=== PATIENT | male | born 1995 | race Caucasian/White ===

== ENCOUNTER 2025-02-02 21:35 | Inpatient (IN) | payer SELFPAY ==
--- NOTE | ~2025-02-02 | US_ITS ---
EXAMINATION: US KIDNEY BILATERAL HISTORY: History of nephrolithiasis TECHNIQUE: Real-time grayscale ultrasound imaging of the kidneys was performed and images were reviewed. COMPARISON: There are no prior studies available for comparison. FINDINGS: Right kidney: The right kidney measures 11.8 x 5.2 x 5.5 cm. Renal parenchymal echotexture and thickness are normal. There are no masses. There is mild hydronephrosis. There are no renal calculi. Left Kidney: The left kidney measures 12.2 x 5.5 x 4.7 cm. Renal parenchymal echotexture and thickness are normal. There are no masses. There is mild hydronephrosis. There are no renal calculi. US/US renal BI IMPRESSION: Mild bilateral hydronephrosis. No renal calculi are identified. If there is clinical concern for ureteral calculi, unenhanced CT is recommended. Electronically signed by: Bud Phan MD 02/04/2025 07:18 AM [facility]
--- OUTSIDE RECORDS SUMMARY | 2025-02-02 21:38 | XMS_ITS | Continuity of Care Document ---
Author Organization [place] - NURY Thomson.PAXTON Address [address] [facility] [address] [place] [address] Care Team Providers Care Curtain Fitter Name Role Phone SHELLI HERNANDEZ RN Oven Stripper NONE, NONE Primary Care Provider Unavailabl e SELF, SELF Referring Provider Unavailable Assessment No assessment recorded. Plan of Treatment Reminders Order Date Submit Date Provider Last Modified By Organization Details Last Modified Time Details Appointments [facility]- Pending 2024 11:40A M HILTON HITCHCOCK PA-C Not available Not available Not available Lab None recorded. Referral None recorded. Procedures None recorded. Surgeries None recorded. Imaging None recorded. Medication Orders tizanidin e 4 mg tablet 2024 025 [facility]/Pharmacy #[id number], [address] [place], [address], 12/15/2024 13:40:51 gabapenti n 300 mg capsule [address] [place] [address]/Pharmacy #[id number], [address] [place], [address], 12/15/2024 13:40:52 Patient TargetsNo targets recorded. 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 - Physical Exam: Vital signs: 5'6, 163 lbs, pain score 4-5/10 The patient is well-groomed, well-developed. Patient is in no distress who is alert, appropriate, and oriented 3. anxious Neck is supple and nontender. No abnormal lymph nodes are noted. Peripheral neurovascular exam reveals good pulses without edema or swelling. Midline spine is nontender and the sacroiliac joints are nontender bilaterally. Diffuse tenderness of lumbar paraspinal muscles, no midline tenderness. Inspection/palpatio n of all 4 extremities revealed no defects. Normal DTRs. Sensation was intact in all 4 extremities. Gait is steady. Coordination is normal in all 4 extremities. Range of motion is within normal limits in all 4 extremities. There is no gross instability noted in all 4 extremities. exam deferred due to telemedicine visit on 12/15/24 Imaging: Lumbar x-rays 07/2024: No significant degenerative changes and no acute findings (lifespan) Lumbar MRI 08/11/24: No significant foraminal or central canal stenosis (RIMI) I have reviewed the patient s most recent imaging and/or the radiologist s report. Discussion: Teodoro is a pleasant 29-year-old male with a benign past medical history. He is presenting for evaluation of back and left greater than right leg symptoms that started after a work-related injury on July 14, 2024. 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 He had immediate pain and has been seen in urgent care in [place] multiple times as well as [facility] emergency room. The pain radiates down the left leg to the foot and he also has intermittent numbness and tingling. He has had numbness and tingling go down the right leg to the foot once. He endorses spasms as well as general weakness. He describes it as a pinched stabbing pain. He also has had an episode of where he has tingling in the right arm when doing a push-up. Symptoms are especially aggravated with activity including standing, bending, walking, and lifting. Symptoms are worst at the end of the day. He has trouble even doing dishes. Prior to seeing our office he has tried conservative measures including home stretches, exercises, activity modification, ibuprofen, naproxen, oral prednisone, oxycodone, cyclobenzaprine, and methocarbamol. 08/20/24: Pt presents for follow-up. He has attended two PT appts. and continues with methocarbamol and motrin QD. He reports minimal improvement in his sx. Now has diffuse back pain that is aching and worse after PT. Pain does occasionally radiate into both buttocks, R >L. He does say he thinks PT is helping a little. Continues with motrin and robaxin with transient relief. Denies numbness, tingling, gait disturbance, bowel/bladder incontinence, saddle anesthesia. 09/29/24: Called patient for his telemedicine appt. He continues with his low back pain with bilateral LE radiculopathy, right worse than left. He has been taking gabapentin and was told to take 600-900 mg but admits that he has been taking 1,800 mg daily because this is helping. He gradually increased his dose on his own. He continues with PT which he says is also helping. He is interested in the epidural spinal injection and just approved this for patient. He continues with at home stretches, heat and Ice. He is interested in trying a different muscle relaxer as the cyclobenzaprine was not helpful. Patient denies fever, chills, weakness, falls, gait disturbance, numbness, bowel/bladder incontinence and saddle anesthesia. Telemedicine visit, audio only, patient is at home, time spent is 10 minutes. 10/22/24: Teodoro presents for a follow-up visit after his first epidural spinal injection. Fortunately, he reports a >90% benefit after the injection. He notices the biggest relief after he does activity he does not feel so stiff and sore. For example, after physical therapy, he usually will feel increased pain and soreness related to the activity but since the injection, this is not happened. He says that overall, since the beginning of his treatment he estimates a >50% improvement in his symptoms. He continues taking the Gabapentin how much is anodyne and even purchased a Tens unit. These have all been beneficial for patient. He would like to try another injection because the pain is still a 6/10. He offers no additional concerns. I have reviewed /requested the patient s previous medical records. - Assessment/Plan: This is an injection follow-up. Fortunately he reports having over 50% benefit. He is able to walk around and do light activity without much pain however if he lifts more than 35 pounds or 50 pounds he will retrigger the spasms. He is in physical therapy and has been going for about 2 weeks. I have encouraged him to continue this. He also is continuing with the tizanidine and gabapentin. We will see how he does over the next month. He is eligible for a third injection if necessary. We also discussed work status. I believe he is ready to return back to work if he has restrictions of lifting no more than 10 pounds starting on 12/22/24. He is in agreement with the plan. We will follow up again in 4 weeks for medication and physical therapy follow-up. He will follow up sooner if needed Telemedicine, audio only, total time spent 10 minutes, the patient was home Conservative Measures Attempted: Self-Directed Exercise program recommended? Yes -15 minutes stretching BID -walk, swim or bike 30 minutes as tolerated daily -follow along with [employer] PT videos Modified home/work environment for symptoms reduction? Yes Nsaids/Tylenol x14 days tried? Yes Rest, ice & heat tried? Yes Treatment: 07/30/24 rx'd medrol and methocarbamol, requesting lumbar MRI 08/20/24: rx'd gabapentin and reviewed MRI 09/05/24 increase gabapentin to 600-900mg/day, requesting injection, continue PT 09/29/24: scheduled MARKOS and rx'd tizanidine 10/01/2024- RIGHT EPIDURAL L4/5 (>90% benefit) 10/22/24: scheduled lumbar injection 11/12/2024- L4/5 RIGHT EPIDURAL (>50% benefit) 12/15/24 continue PT, RTW with restrictions - Reason for next appointment: work status, PT follow up Summary: Workers ENRIQUE Fernandez [address] [employer] Sections of this note were dictated using voice recognition software and may include typographical/gramm ar errors [email or web address] Not available 12/15/2024 13:47:01 Reason for Referral None Reported. Problems No Known Problems Procedures Surgical History Date Name Laterality Status Provider Name and Address Organization Details Recorded Time 5 34930 LUMBAR EPIDURAL STEROID INJECTION W/ FLUOROSCOPE completed Evelin NUNEZ - [facility] 11/27/2024 15:53:48 09/03/202 5 NEW MARKOS [facility] 15:54:29 5 [id number] LUMBAR EPIDURAL STEROID INJECTION W/ FLU[facility]OSCOPE [facility] 10/01/2024 15:38:11 5 NEW MARKOS [facility] completed [facility] 10/01/2024 15:41:21 Imaging Results None recorded. Procedure Notes None recorded. Medical Equipment None Reported. Allergies No known drug allergies Medications Name Sig Start Date Stop Date Status Note LastModified by Organization Details LastModified Time cyclobenzapr ine 10 mg tablet PLEASE SEE ATTACHED FOR DETAILED DIRECTIONS active Not Available Not Available N ot Available methocarbamo l 500 mg tablet Take 2 tablets 4 times a day by oral route as needed. 2024 active Not Available Not Available Not Avai lable prednisone 10 mg tablet TAKE 4 (FOUR) TABLETS (40 MG TOTAL) BY MOUTH ONCE DAILY FOR 4 DAYS. active Not Available Not Available Not Available tizanidine 2 mg tablet TAKE 1 TABLET EVERY 6 HOURS BY ORAL ROUTE NEEDED, FOR MUSCLE SPASM. active Not Available Not Available No t Available tizanidine 4 mg tablet TAKE 1 TABLET BY MOUTH EVERY 6 HOURS NEEDED FOR BACK PAIN OR SPASM active Not Available Not Available No t Available acetaminophe n 500 mg tablet TAKE 1 (ONE) TABLET (500 MG TOTAL) BY MOUTH EVERY 6 (SIX) HOURS FOR 5 DAYS. active Not Available Not Available Not Available methocarbamo l 750 mg tablet TAKE 1 TABLET 3 TIMES A DAY BY ORAL ROUTE NEEDED, FOR BACK PAIN/SPASMS . active Not Available Not Available No t Available gabapentin 300 mg capsule Take 1 capsule 3 times a day by oral route. 2024 active Not Available Not Available Not Avai lable gabapentin 100 mg capsule TAKE 1 CAPSULE BY MOUTH IN THE AM AND 2 CAPSULES BY MOUTH AT BEDTIME active Not Available Not Available No t Available ibuprofen 600 mg tablet TAKE 1 TABLET BY MOUTH THREE TIMES A DAY FOR 5 DAYS active Not Available Not Available N ot Available methylpredni solone 4 mg tablets in a dose pack TAKE 6 TABLETS ON DAY 1 DIRECTED ON PACKAGE AND DECREASE BY 1 TAB EACH DAY FOR A TOTAL OF 6 DAYS active Not Available Not Available No t Available naproxen 500 mg tablet TAKE 1 TABLET BY MOUTH TWICE A DAY FOR PAIN FOR 7 DAYS active Not Available Not Available No t Available oxycodone 5 mg tablet TAKE 1 TABLET (5 MG TOTAL) BY MOUTH EVERY 6 HOURS NEEDED active Not Available Not Available No t Available methocarbamo l 1,000 mg tablet Take by oral route for 30 days. active Not Available Not Available No t Available Vitals None Recorded Social History None recorded. Functional Status None recorded. Mental Status None recorded. Family History Nothing Reported. Medical History No medical history recorded. Immunizations Vaccine Type Date Status Note Provider Nam e and Address Organization Details Recorded Time Hep B, adolescent or pediatric 5 completed Not Available [facility] 01/20/2025 00:12:45 Hep B, adolescent or pediatric 6 completed Not Available [facility] 01/20/2025 00:12:45 Hib, unspecified formulation 6 completed Not Available [facility] 01/20/2025 00:12:45 DTaP 6 completed Not Available [facility] 01/20/2025 00:12:45 IPV 6 completed Not Available [facility] 01/20/2025 00:12:45 Hib, unspecified formulation 6 completed Not Available [facility] 01/20/2025 00:12:45 DTaP 6 completed Not Available [facility] 01/20/2025 00:12:45 IPV 6 completed Not Available [facility] 01/20/2025 00:12:45 Hib, unspecified formulation 6 completed Not Available [facility] 01/20/2025 00:12:45 DTaP 6 completed Not Available [facility] 01/20/2025 00:12:45 IPV 6 completed Not Available [facility] 01/20/2025 00:12:45 Hep B, adolescent or pediatric 6 completed Not Available [facility] 01/20/2025 00:12:45 Hib, unspecified formulation 7 completed Not Available [facility] 01/20/2025 00:12:45 DTaP 7 completed Not Available [facility] 01/20/2025 00:12:45 MMR 7 completed Not Available [facility] 01/20/2025 00:12:45 DTaP 0 completed Not Available [facility] 01/20/2025 00:12:45 IPV 0 completed Not Available [facility] 01/20/2025 00:12:45 MMR 0 completed Not Available [facility] 01/20/2025 00:12:45 varicella 0 completed Not Available [facility] 01/20/2025 00:12:45 varicella 6 completed Not Available [facility] 01/20/2025 00:12:45 meningococcal MCV4P 8 completed Not Available [facility] 01/20/2025 00:12:45 Tdap 8 completed Not Available [facility] 01/20/2025 00:12:45 Influenza, split virus, trivalent, preservative 8 completed Not Available [facility] 01/20/2025 00:12:45 Influenza, split virus, trivalent, PF 0 completed Not Available [facility] 01/20/2025 00:12:45 HPV, quadrivalent 1 completed Not Available [facility] 01/20/2025 00:12:45 HPV, quadrivalent 1 completed Not Available [facility] 01/20/2025 00:12:45 HPV, quadrivalent 1 completed Not Available [facility] 01/20/2025 00:12:45 meningococcal MCV4P 2 completed Not Available [facility] 01/20/2025 00:12:45 Influenza, split virus, quadrivalent, PF 3 completed Not Available [facility] 01/20/2025 00:12:45 Tdap 3 completed Not Available [facility] 01/20/2025 00:12:45 Past Encounters Encounter ID Performer Location Encounter Start Date Encounter Closed Date Diagnosis/Indication Diagnosis SNOMED-CT Code Diagnosis ICD10 Code Diagnosis IMO Codes Diagnosis Note [id number] ANASTASIA Messer.[facility] [address] [facility] [address] [place] [address] 12/15/2024 13:35:22 12/16/2024 13:13:07 Lumbosacral spondylosis with radiculopathy 411307551 M47.27 [id number] Lumbar radiculopathy 128 717005 M54.16 Health Concerns Section Related Observation LastModified by Organization Detai ls LastModified Time None Recorded Concern Status LastModified by Organization Details LastModified Time None Recorded Payers Encounter Date Sequence Insurance Name Policy Number Policy Lundberg Covered Member ID Lundberg Member ID Guarantor Name 12/15/2024 [employer] Teodoro Draper Notes Date Note Type Note Provider Name and Address Organization Details Recorded Time 12/15/2024 text/html [facility] History of Presenting IllnessReported by PatientBSNI History of Presenting IllnessFor hpi, patient reportssee intake sheet signed and dated today.ROS as noted in the HPI Blossom Armando PA-C [address] [place], [address], [place] - [facility] 12/15/2024 13:47:14
--- OUTSIDE RECORDS SUMMARY | 2025-02-02 21:38 | XMS_ITS | Continuity of Care Document ---
Author Organization [place] - NURY Thomson.MCGREGOR Address [address] [facility] [address] [place] [address] Care Team Providers Care Renal Nurse Name Role Phone SHELLI HERNANDEZ RN Molecular Biologist NONE, NONE Primary Care Provider Unavailabl e SELF, SELF Referring Provider Unavailable Assessment No assessment recorded. Plan of Treatment Reminders Order Date Submit Date Provider Last Modified By Organization Details Last Modified Time Details Appointments [facility]- Pending FU 20 2024 11:40A M HILTON HITCHCOCK PA-C Not available Not available Not available Lab None recorded . Referral None recorded . Procedures None recorded . Surgeries None recorded . Imaging None recorded . Medication Orders None recorded . Patient TargetsNo targets recorded. 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 exam deferred due to telemedicine visit Imaging: Lumbar x-rays 07/2024: No significant degenerative [...] 14, 2024. 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 He had immediate pain and has been seen in urgent care in [place] multiple times as well as [facility] emergency room. The pain radiates down [...] patient s previous medical records. - Assessment/Plan: Patient on the phone for a follow up. he reports he did PT and they had him do weight lifting and the pain has now worsened. Sometimes pain is as high as 8/10, with stabbing pain mid back to right buttock. He was doing well the first 3 weeks when he was doing just stretches. He has not gone back to work because sitting for long periods of time in the truck will not work for him. He wants to go back to PT but his workers comp would not allow that. I will send another order for that. and MARKOS appt advised as well. Telemedicine, audio only, total time spent 10 minutes, the patient was home Conservative Measures Attempted: Self-Directed Exercise program recommended? Yes -15 minutes stretching BID -walk, swim or bike 30 minutes as tolerated daily -follow along with [employer] PT videos Modified home/work environment for symptoms [...] with restrictions - Reason for next appointment: Pt follow up and MARKOS Summary: ENRIQUE Mcgwoan Sections of this note were dictated using voice recognition software and may include typographical/gramm ar errors [email or web address] Not available 01/13/2025 15:49:20 Reason for Referral None Reported. Problems No Known Problems Procedures Surgical History Date Name Laterality Status Provider Name and Address Organization Details Recorded Time 5 45249 LUMBAR EPIDURAL STEROID INJECTION W/ FLUOROSCOPE completed Evelin Rosinha [place] - [facility] 11/27/2024 15:53:48 5 NEW MARKOS [facility] completed Evelin Rosinha [place] - [facility] 11/27/2024 15:54:29 5 28752 LUMBAR EPIDURAL STEROID INJECTION W/ FLUOROSCOPE completed Evelin Rosinha [place] - [facility] 10/01/2024 15:38:11 5 NEW MARKOS [facility] completed Evelin Rosinha [place] - [facility] 10/01/2024 15:41:21 Imaging Results None recorded. Procedure [...] adolescent or pediatric 5 completed Not Available [facility] 01/20/2025 00:12:45 Hep B, adolescent or pediatric 6 completed Not Available [facility] 01/20/2025 00:12:45 Hib, unspecified formulation 6 completed Not Available [facility] 01/20/2025 00:12:45 DTaP 6 completed Not Available [facility] 01/20/2025 00:12:45 IPV 6 completed Not Available [facility] 01/20/2025 00:12:45 Hib, unspecified formulation 6 completed Not Available [facility] 01/20/2025 00:12:45 DTaP 6 completed Not Available [facility] 01/20/2025 00:12:45 IPV 6 completed Not Available [facility] 01/20/2025 00:12:45 Hib, unspecified formulation 6 completed Not Available [facility] 01/20/2025 00:12:45 DTaP 6 completed Not Available [facility] 01/20/2025 00:12:45 IPV 6 completed Not Available [facility] 01/20/2025 00:12:45 Hep B, adolescent or pediatric 6 completed Not Available [facility] 01/20/2025 00:12:45 Hib, unspecified formulation 7 completed Not Available [facility] 01/20/2025 00:12:45 DTaP 7 completed Not Available [facility] 01/20/2025 00:12:45 MMR 7 completed Not Available [facility] 01/20/2025 00:12:45 DTaP 0 completed Not Available [facility] 01/20/2025 00:12:45 IPV 0 completed Not Available [facility] 01/20/2025 00:12:45 MMR 0 completed Not Available [facility] 01/20/2025 00:12:45 varicella 0 completed Not Available [facility] 01/20/2025 00:12:45 varicella 6 completed Not Available [facility] 01/20/2025 00:12:45 meningococcal MCV4P 8 completed Not Available [facility] 01/20/2025 00:12:45 Tdap 8 completed Not Available [facility] 01/20/2025 00:12:45 Influenza, split virus, trivalent, preservative 8 completed Not Available [facility] 01/20/2025 00:12:45 Influenza, split virus, trivalent, PF 0 completed Not Available [facility] 01/20/2025 00:12:45 HPV, quadrivalent 1 completed Not Available [facility] 01/20/2025 00:12:45 HPV, quadrivalent 1 completed Not Available [facility] 01/20/2025 00:12:45 HPV, quadrivalent 1 completed Not Available [facility] 01/20/2025 00:12:45 meningococcal MCV4P 2 completed Not Available [facility] 01/20/2025 00:12:45 Influenza, split virus, quadrivalent, PF 3 completed Not Available [facility] 01/20/2025 00:12:45 Tdap 3 completed Not Available [facility] 01/20/2025 00:12:45 Past Encounters Encounter ID Performer Location Encounter Start Date Encounter Closed Date Diagnosis/Indication Diagnosis SNOMED-CT Code Diagnosis ICD10 Code Diagnosis IMO Codes Diagnosis Note [id number] ANASTASIA Messer.NICOLETTE ESPINOZA [address], [place] [address] [place] [address] 12/15/2024 13:35:22 12/16/2024 13:13:07 Lumbosacral spondylosis with radiculopathy 834909237 M47.27 [id number] Lumbar radiculopathy 128 464717 M54.16 [id number] ANASTASIA Elaine.NICOLETTE ESPINOZA [address], [place] [address] [place] [address] 01/13/2025 11:21:27 01/15/2025 10:25:15 Lumbosacral spondylosis with radiculopathy 413134605 M47.27 0721511 Lumbar radiculopathy 128 499854 M54.16 Health Concerns Section Related Observation LastModified by Organization Detai ls LastModified Time None Recorded Concern Status LastModified by Organization Details LastModified Time None Recorded Payers None recorded. Notes Date Note Type Note Provider Name and Address Organization Details Recorded Time 01/13/2025 text/html [facility] History of Presenting IllnessReported by PatientBSNI History of Presenting IllnessFor hpi, patient reportssee intake sheet signed and dated today.ROS as noted in the HPI Priscila Norris PA-C [address] [place], [address], [place] - [facility] 01/13/2025 15:49:43
--- OUTSIDE RECORDS SUMMARY | 2025-02-02 21:38 | XMS_ITS | Data Portability ---
Author Organization [place] - NURY Thomson.AMBOY Address [address], [address] [place] [address] Care Team Providers Care Avionics Repair Technician Name Role Phone SHELLI HERNANDEZ RN Pipe Bowls Paint Trimmer NONE, NONE Primary Care Provider Unavailabl e [...] tizanidin e 4 mg tablet 2024 025 [facility]/Pharmacy #[id number], [address] [place], [address], 12/15/2024 13:40:51 gabapenti n 300 mg capsule [address] [place] [address]/Pharmacy #[id number], [address] [place], [address], 12/15/2024 13:40:52 Patient TargetsNo targets recorded. 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 - Physical Exam: Vital signs: 5'6, 163 lbs, pain score 10/10 The patient is well-groomed, well-developed. Patient is [...] gross instability noted in all 4 extremities. Imaging: Lumbar x-rays 07/2024: No significant degenerative [...] 14, 2024. 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 He had immediate pain and has been seen in urgent care in [place] multiple times as well as [facility] emergency room. The pain radiates down the [...] patient s previous medical records. - Assessment/Plan: Teodoro is doing quite well on his journey to Healing his back pain. He feels that he currently has a good regimen going and would like to schedule another epidural spinal injection given the benefit he found from the first one. Discussed continuing conservative measures at home including exercises and stretching and discussed warning signs and when to seek emergency medical attention and patient verbalizes understanding and agrees with plan. Conservative Measures Attempted: Self-Directed Exercise program recommended? Yes -15 minutes stretching BID -walk, swim or bike 30 minutes as tolerated daily -follow along with [employer] PT videos Modified home/work environment for symptoms reduction? Yes Nsaids/Tylenol x14 days tried? Yes Rest, ice & heat tried? Yes Treatment: 07/30/24 rx'd medrol and methocarbamol, requesting lumbar MRI 08/20/24: rx'd gabapentin and reviewed MRI 09/05/24 increase gabapentin to 600-900mg/day, requesting injection, continue PT 09/29/24: scheduled MARKOS and rx'd tizanidine 10/01/2024- RIGHT EPIDURAL L4/5 (>90% benefit) 10/22/24: scheduled MARKOS L4/5 right - Reason for next appointment: MARKOS L4/5 right (repeat) Summary: Workers ENRIQUE Fernandez [address] Sections of this note were dictated using voice recognition software and may include typographical/gramm ar errors [email or web address] Not available 10/23/2024 12:26:41 11/12/2024 [id number] Date of onset of symptoms: July 14, 2024 - Past medical history: None Listed - Past surgical history: None Listed 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 - Physical Exam: Vital signs: 5'6, 163 lbs, pain score 10/10 The patient is well-groomed, well-developed. Patient is [...] gross instability noted in all 4 extremities. Imaging: Lumbar x-rays 07/2024: No significant degenerative [...] 14, 2024. 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 He had immediate pain and has been seen in urgent care in [place] multiple times as well as [facility] emergency room. The pain radiates down the [...] patient s previous medical records. - Assessment/Plan: Today we proceeded with a L4/5 EPIDURAL injection. I will see them back in a few weeks to check in. I hope this provides them with relief. They know they can call us sooner should symptoms change or worsen. Conservative Measures Attempted: Self-Directed Exercise program recommended? Yes -15 minutes stretching BID -walk, swim or bike 30 minutes as tolerated daily -follow along with [employer] PT videos Modified home/work environment for symptoms reduction? Yes Nsaids/Tylenol x14 days tried? Yes Rest, ice & heat tried? Yes Treatment: 07/30/24 rx'd medrol and methocarbamol, requesting lumbar MRI 08/20/24: rx'd gabapentin and reviewed MRI 09/05/24 increase gabapentin to 600-900mg/day, requesting injection, continue PT 09/29/24: scheduled MARKOS and rx'd tizanidine 10/01/2024- RIGHT EPIDURAL L4/5 (>90% benefit) 10/22/24: scheduled MARKOS L4/5 right 11/12/2024- L4/5 RIGHT EPIDURAL - Reason for next appointment: MARKOS L4/5 right FU Summary: Workers Shabbir Anthony, [place] [address] Sections of this note were dictated using voice recognition software and may include typographical/gramm ar errors [email or web address] Not available 11/27/2024 15:57:11 12/15/2024 [id number] Date of onset of symptoms: July 14, 2024 - Past medical history: None Listed - Past surgical history: None Listed 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 He had immediate pain and has been seen in urgent care in [place] multiple times as well as [facility] emergency room. The pain radiates down the [...] injection because the pain is still a /10. He offers no additional concerns. I have [...] minutes as tolerated daily -follow along with [employer] 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 He had immediate pain and has been seen in urgent care in [place] multiple times as well as [facility] emergency room. The pain radiates down the [...] minutes as tolerated daily -follow along with [employer] PT videos Modified home/work environment for symptoms [...] Pt follow up and MARKOS Summary: ENRIQUE Mcgowan [address] Sections of this note were dictated using voice recognition software and may include typographical/gramm ar errors [email or web address] Not available 01/13/2025 15:49:20 Reason for Referral None Reported. Problems No Known Problems Procedures Surgical History Date Name Laterality Status Provider Name and Address Organization Details Recorded Time 5 80642 LUMBAR EPIDURAL STEROID INJECTION W/ FLUOROSCOPE completed Evelin Rosinha [place] - [facility] 11/27/2024 15:53:48 5 NEW MARKOS [facility] completed Evelin Rosinha [place] [facility] 11/27/2024 15:54:29 5 63767 LUMBAR EPIDURAL STEROID INJECTION W/ FLUOROSCOPE completed [...] adolescent or pediatric 5 completed Not Available [facility] 01/20/2025 00:12:45 Hep B, adolescent or pediatric 6 completed Not Available [facility] 01/20/2025 00:12:45 Hib, unspecified formulation 6 completed Not Available [facility] 01/20/2025 00:12:45 DTaP 6 completed Not Available [facility] 01/20/2025 00:12:45 IPV 6 completed Not Available [facility] 01/20/2025 00:12:45 Hib, unspecified formulation 6 completed Not Available [facility] 01/20/2025 00:12:45 DTaP 6 completed Not Available [facility] 01/20/2025 00:12:45 IPV 6 completed Not Available [facility] 01/20/2025 00:12:45 Hib, unspecified formulation 6 completed Not Available [facility] 01/20/2025 00:12:45 DTaP 6 completed Not Available [facility] 01/20/2025 00:12:45 IPV 6 completed Not Available [facility] 01/20/2025 00:12:45 Hep B, adolescent or pediatric 6 completed Not Available [facility] 01/20/2025 00:12:45 Hib, unspecified formulation 7 completed Not Available [facility] 01/20/2025 00:12:45 DTaP 7 completed Not Available [facility] 01/20/2025 00:12:45 MMR 7 completed Not Available [facility] 01/20/2025 00:12:45 DTaP 0 completed Not Available [facility] 01/20/2025 00:12:45 IPV 0 completed Not Available [facility] 01/20/2025 00:12:45 MMR 0 completed Not Available [facility] 01/20/2025 00:12:45 varicella 0 completed Not Available [facility] 01/20/2025 00:12:45 varicella 6 completed Not Available [facility] 01/20/2025 00:12:45 meningococcal MCV4P 8 completed Not Available [facility] 01/20/2025 00:12:45 Tdap 8 completed Not Available [facility] 01/20/2025 00:12:45 Influenza, split virus, trivalent, preservative 8 completed Not Available [facility] 01/20/2025 00:12:45 Influenza, split virus, trivalent, PF 0 completed Not Available [facility] 01/20/2025 00:12:45 HPV, quadrivalent 1 completed Not Available [facility] 01/20/2025 00:12:45 HPV, quadrivalent 1 completed Not Available [facility] 01/20/2025 00:12:45 HPV, quadrivalent 1 completed Not Available [facility] 01/20/2025 00:12:45 meningococcal MCV4P 2 completed Not Available [facility] 01/20/2025 00:12:45 Influenza, split virus, quadrivalent, PF 3 completed Not Available [facility] 01/20/2025 00:12:45 Tdap 3 completed Not Available [facility] 01/20/2025 00:12:45 Past Encounters Encounter ID Performer Location Encounter Start Date Encounter Closed Date Diagnosis/Indication Diagnosis SNOMED-CT Code Diagnosis ICD10 Code Diagnosis IMO Codes Diagnosis Note [id number] ANASTASIA [address], [address] [place] [address] 07/30/2024 13:44:42 07/31/2024 16:08:39 Lumbar radiculopathy 706767678 M54.16 [id number] Blossom Armando PA-C [address], [address] [place] [address] 08/20/2024 12:51:05 08/21/2024 11:15:35 Lumbar radiculopathy 423853400 M54.16 [id number] ANASTASIA [address], [address] [place] [address] 09/05/2024 11:38:53 09/16/2024 12:00:54 Lumbar radiculopathy 058274833 M54.16 [id number] Blossom Armando PA-C [address], [address] [place] [address] 09/29/2024 11:28:04 10/03/2024 06:36:42 Lumbar radiculopathy 470851103 M54.16 [id number] Daniel Gomez MD [facility].[address] NOONANMagdy Dominic [address], [address] [place] [address] 10/01/2024 12:17:36 10/03/2024 06:40:09 Lumbosacral spondylosis with radiculopathy 970655945 M47.27 [id number] HILTON HITCHCOCK PA-C [facility], [address] [place] [address] 10/23/2024 12:06:30 11/03/2024 16:03:40 Lumbosacral spondylosis with radiculopathy 697725683 M47.27 [id number] Daniel Gomez MD [facility], [address] [place] [address] 11/12/2024 14:10:24 11/28/2024 13:57:27 Lumbosacral spondylosis with radiculopathy 944984941 M47.27 [id number] Blossom Armando PA-C [facility], [address] [place] [address] 12/15/2024 13:35:22 12/16/2024 13:13:07 Lumbosacral spondylosis with radiculopathy 276292451 M47.27 [id number] Lumbar radiculopathy 128 554140 M54.16 [id number] Priscila Norris PA-C [facility], [address] [place] [address] 01/13/2025 11:21:27 01/15/2025 10:25:15 Lumbosacral spondylosis with radiculopathy 494356388 M47.27 [id number] Lumbar radiculopathy 128 515271 M54.16 Health Concerns Section Related Observation LastModified by Organization Detai ls LastModified Time None Recorded Concern Status LastModified by Organization Details LastModified Time None Recorded Advance Directives Directive None Recorded Payers Insurance Date Sequence Insurance Name Policy Number Policy Lundberg Covered Member ID Lundberg Member ID Guarantor Name 08/06/2024 [facility] INSUR[facility] - [employer] Teodoro Draper Notes Date Note Type Note Provider Name and Address Organization Details Recorded Time 10/23/2024 text/html BS[facility] History of Presenting IllnessReported by PatientBSNI History of Presenting IllnessFor hpi, patient reportssee intake sheet signed and dated today. HITLON HITCHCOCK PA-C [address] [place], [address], [facility] 10/23/2024 12:26:49 12/15/2024 text/html BS[facility] History of Presenting IllnessReported by PatientBSNI History of Presenting IllnessFor hpi, patient reportssee intake sheet signed and dated today.ROS as noted in the HPI Blossom Armando PA-C [address] [place], [address], [facility] 12/15/2024 13:47:14 01/13/2025 text/html BS[facility] History of Presenting IllnessReported by PatientBSNI [facility]ness[facility], patient reportssee intake sheet signed and dated today.ROS as noted in the HPI Priscila Norris PA-C [address] [place], [address], [facility] 01/13/2025 15:49:43
--- OUTSIDE RECORDS SUMMARY | 2025-02-02 21:38 | XMS_ITS | Continuity of Care Document ---
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 He had immediate pain and has been seen in urgent care in [place] multiple times as well as [facility] emergency room. The pain radiates down [...] minutes as tolerated daily -follow along with [employer] PT videos Modified home/work environment for symptoms [...] next appointment: MARKOS L4/5 right FU Summary: ENRIQUE Mc[address] Sections of this note were dictated using voice recognition software and may include typographical/gramm ar errors [email or web address] Not available 11/27/2024 15:57:11 Reason for Referral None Reported. Problems No Known Problems Procedures Surgical History Date Name Laterality Status Provider Name and Address Organization Details Recorded Time 5 38324 LUMBAR EPIDURAL STEROID INJECTION W/ FLUOROSCOPE completed Evelin Rosinha [place] - [facility] 11/27/2024 15:53:48 5 NEW MARKOS [facility] completed Evelin Rosinha [place] [facility] 11/27/2024 15:54:29 5 68363 LUMBAR EPIDURAL STEROID INJECTION W/ FLUOROSCOPE completed [...] 2024 active Not Available Not Available Not Ramu[facility] lab[facility] gabapentin 100 mg capsule TAKE 1 CAPSULE [...] or pediatric 5 completed Not Available [facility] 01/20/2025 00:12:45 Hep B, adolescent or pediatric 6 completed Not Available [facility] 01/20/2025 00:12:45 Hib, unspecified formulation 6 completed Not Available [facility] 01/20/2025 00:12:45 DTaP 6 completed Not Available [facility] 01/20/2025 00:12:45 IPV 6 completed Not Available [facility] 01/20/2025 00:12:45 Hib, unspecified formulation 6 completed Not Available [facility] 01/20/2025 00:12:45 DTaP 6 completed Not Available [facility] 01/20/2025 00:12:45 IPV 6 completed Not Available [facility] 01/20/2025 00:12:45 Hib, unspecified formulation 6 completed Not Available [facility] 01/20/2025 00:12:45 DTaP 6 completed Not Available [facility] 01/20/2025 00:12:45 IPV 6 completed Not Available [facility] 01/20/2025 00:12:45 Hep B, adolescent or pediatric 6 completed Not Available [facility] 01/20/2025 00:12:45 Hib, unspecified formulation 7 completed Not Available [facility] 01/20/2025 00:12:45 DTaP 7 completed Not Available [facility] 01/20/2025 00:12:45 MMR 7 completed Not Available [facility] 01/20/2025 00:12:45 DTaP 0 completed Not Available [facility] 01/20/2025 00:12:45 IPV 0 completed Not Available [facility] 01/20/2025 00:12:45 MMR 0 completed Not Available [facility] 01/20/2025 00:12:45 varicella 0 completed Not Available [facility] 01/20/2025 00:12:45 varicella 6 completed Not Available [facility] 01/20/2025 00:12:45 meningococcal MCV4P 8 completed Not Available [facility] 01/20/2025 00:12:45 Tdap 8 completed Not Available [facility] 01/20/2025 00:12:45 Influenza, split virus, trivalent, preservative 8 completed Not Available [facility] 01/20/2025 00:12:45 Influenza, split virus, trivalent, PF 0 completed Not Available [facility] 01/20/2025 00:12:45 HPV, quadrivalent 1 completed Not Available [facility] 01/20/2025 00:12:45 HPV, quadrivalent 1 completed Not Available [facility] 01/20/2025 00:12:45 HPV, quadrivalent 1 completed Not Available [facility] 01/20/2025 00:12:45 meningococcal MCV4P 2 completed Not Available [facility] 01/20/2025 00:12:45 Influenza, split virus, quadrivalent, PF 3 completed Not Available [facility] 01/20/2025 00:12:45 Tdap 3 completed Not Available [facility] 01/20/2025 00:12:45 Past Encounters Encounter ID Performer Location Encounter Start Date Encounter Closed Date Diagnosis/Indication Diagnosis SNOMED-CT Code Diagnosis ICD10 Code Diagnosis IMO Codes Diagnosis Note [id number] HILTON HITCHCOCK PA-C [facility].[address]E [address] [facility] [address] [place] [address] 10/23/2024 12:06:30 11/03/2024 16:03:40 Lumbosacral spondylosis with radiculopathy [id number] M47.27 [id number] Daniel Gomez MD [facility] [address] [facility] [place] [address] 11/12/2024 14:10:24 11/28/2024 13:57:27 Lumbosacral spondylosis with radiculopathy 703100488 M47.27 [id number] Health Concerns Section Related Observation LastModified by Organization Detai ls LastModified Time None Recorded Concern Status LastModified by Organization Details LastModified Time None Recorded Payers Encounter Date Sequence Insurance Name Policy Number Policy Lundberg Covered Member ID Lundberg Member ID Guarantor Name 11/12/2024 [employer] - [employer] Teodoro Draper
--- OUTSIDE RECORDS SUMMARY | 2025-02-02 21:38 | XMS_ITS | Clinical Summary ---
Author Organization [facility] Address [address] [id number] Care Team Providers Care Hostess Cashier Name Role Phone No, Pcp MD Primary Care Provider Unavailabl e Allergies No known active allergies Medications oxyCODONE (ROXICODONE) 5 MG immediate release tabletIndications: Lumbar radiculopathy Take 1 (one) tablet (5 mg total) by mouth every 6 (six) hours as needed. 7 tablet Active Social History Tobacco Use Types Packs/Day Years Used Date Smoking Tobacco: Never Assessed Sex and Gender Information Value Date Recorded Sex Assigned at Not on file Legal Sex Male 8:06 PM EST Gender Identity Not on file Sexual Orientation Not on file Last Filed Vital Signs Vital Sign Reading Time Taken Comments Blood Pressure 123/83 07/16/2024 1:33 PM EDT Pulse 113 07/16/2024 1:33 PM EDT Temperature 36.1 C (97 F) 07/16/2024 1:33 PM EDT Respiratory Rate 20 07/16/2024 1:33 PM EDT Oxygen Saturation 99% 07/16/2024 1:33 PM EDT Inhaled Oxygen Concentration - - Weight 75.3 kg (166 lb) 07/16/2024 1:33 PM EDT Height - - Body Mass Index - - Plan of Treatment Health Maintenance Due Date Last Done Comments HEPATITIS C SCREENING 02/04/2012 INFLUENZA VACCINE (#1) 2024 3, 02/15/2010, 02/08/2008 COVID-19 IMMUNIZATION ( season) 2024 DTAP/TDAP/TD VACCINES (8 - Td or Tdap) 08/31/2032 08/31/2022, 04/18/2007, 03/24/1999, Additional history exists ZOSTER VACCINE (1 of 2) 2045 01/08/2006, 03/24 RSV IMMUNIZATION (1 - 1-dose 75+ series) 2070 HEPATITIS B VACCINES Completed 1995, 1995, 1995 HIB VACCINES Completed 04/21/1996, 05/1995, 1995, Additional history exists IPV VACCINES Completed 03/24/1999, 05/1995, 1995, Additional history exists MMR VACCINES Completed 03/24/1999, 04/21/1996 VARICELLA VACCINES Completed 01/08/2006, 03/24/1999 HPV VACCINE Completed 01/23/2011, 09/09, 07/14/2010 MENINGOCOCCAL ACYW VACCINE Completed 07/24/2011, HEPATITIS A VACCINES Aged Out No long er eligible based on patient's age to complete this topic MENINGOCOCCAL B VACCINE Aged Out No l onger eligible based on patient's age to complete this topic PNEUMOCOCCAL VACCINE Aged Out No long er eligible based on patient's age to complete this topic ROTAVIRUS VACCINES Aged Out No longer eligible based on patient's age to complete this topic Insurance WORK[employer] (OOS) Care Teams Hostess Cashier Relationship Specialty Start Date End Date No, PcpMD No Address [place] [address] PCP - General Internal Medicine 07/16/24
[2025-02-02 22:28] VITALS: BMI 29.1
--- NOTE | 2025-02-02 23:12 | PC.ADMIT ---
PT IS A 31 YEAR OLD, TURKMEN SPEAKING, MALE ADMITTED TO AT [facility]. PT SIGNED A CONDITIONAL VOLUNTARY WITH LUIZA COHEN UPON ARRIVAL. PT WAS COOPERATIVE WITH SKIN CHECK. SKIN CHECK UNREMARKABLE. VITAL SIGNS WNL. LABS UNREMARKABLE. 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 PT REPORTS THAT HE HAS RECENTLY HAD KIDNEY STONES WHICH WAS VERIFIED BY [facility]. PT HAS BEEN STRUGGLING WITH SLEEP, SYMPTOMS OF MADINA, AND DELUSIONS. ACCORDING TO ASSESSMENT, PTS MOTHER REPORTS SIMILAR SYMPTOMS HAPPEN AROUND THIS TIME EVERY YEAR BUT NEVER TO THIS DEGREE . PT LIVES WITH HIS FIANCE AND THEIR 4 YEAR OLD SON. 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 PT DENIES SUBSTANCE USE, TOX SCREEN NEGATIVE. PT REPORTS HE RECEIVED A STEROID INJECTION WITHIN THE PAST TWO WEEKS. BROTHER HAS BIPOLAR DISORDER AND MOM REPORTS A SIMILAR PRESENTATION THE BROTHER. PT REPORTS HE HEARS HIS OWN VOICE IN HIS HEAD BUT APPEARS TO BE RESPONDING TO INTERNAL STIMULI. PT TOOK A SHOWER. ABLE TO ADVOCATE FOR NEEDS HOWEVER IS DISORGANIZED, TANGENTIAL, AND AT TIMES NON-SENSICAL. DURING BUSINESS INFORMATION MANAGER, PT TOOK PANTS OFF AND WAS WALKING AROUND TALKING WITH NO PANTS/UNDERWEAR AND NEEDED REMINDING TO FINISH PUTTING CLOTHES ON. PT NEEDS REDIRECTION TO STAY ON TOPIC OR COMPLETE TAKS. PTS SPEECH IS HYPERVERBAL. DENIES PRIOR IPLOC. NO THERAPIST, PSYCHIATRIST, OR PCP. PT ORIENTED TO UNIT AND FEELS SAFE.
[2025-02-03 08:00] VITALS: BP 144/80; PULSE 76; RESP 16; TEMP 36.3; O2SAT 99
[2025-02-03 08:45] LABS: Alanine Aminotransferase 37 U/L (0-40); Albumin Level 4.8 g/dL (3.5-5.0); Alkaline Phosphatase 60 U/L (39-117); Anion Gap 11 (12-20); Aspartate Amino Transferase 59 U/L (5-37); Blood Urea Nitrogen 14 mg/dL (9-16); Calcium 9.5 mg/dL (8.4-10.2); Carbon Dioxide 27 mmol/L (22-29); Chloride 106 mmol/L (96-108); Cholesterol 180 mg/dL (<200); Creatinine Clr Calc Pharmacy 102.8; Estimated Glomerular Filt Rate > 60; HDL Cholesterol 41 mg/dL (>40); Magnesium 2.3 mg/dL (1.6-2.6); Potassium 4.1 mmol/L (3.3-5.1); Sodium 140 mmol/L (135-145); Total Protein 7.1 g/dL (6.5-8.0); Triglycerides 93 mg/dL (<150)
--- NOTE | 2025-02-03 08:50 | HO.PM.IMCN ---
History of Present Illness Data of Consult Service Date: 02/03/25 Primary Care Provider: Unknown Physician HPI Reason for consult: Medical H&P 30-year-old female with a past medical history of lumbar spine spondylosis, recently diagnosed with a kidney stone initially presented to the ED for these conditions, found to be manic evaluated by psychiatric team. Patient noted to have a recent steroid injection in his spine. Patient had a lumbar spine MRI which showed broad-based disc protrusion at L5-S1 without spinal cord or neuro stenosis, no acute abnormality in the lumbar spine. Patient reportedly had a back injury in July 2024 which led to significant pain and decompensation. He has been having issues with his mental health since then with increasingly manic behavior. Patient's tox screen was negative. His metabolic panel was within normal limits, no evidence of renal injury. CBC with a mild leukocytosis and no anemia. On exam he is reporting chronic back pain. Otherwise has no medical concerns. Review of Systems Review of Systems: Denies any shortness of breath, chest pain, headaches, dysuria, abdominal pain or discomfort, nausea, vomiting or diarrhea. Denies fever or chills. PMFSH Social History Household Members: Significant Other Do you presently have visiting nurse or other home services: No Patient Tobacco Use Status: Never used Tobacco Smoked in Last 30 Days: No Currently Displaying Signs/Symptoms of Drug Intoxication Withdrawal: No Have you been hit, kicked, punched, or otherwise hurt by someone within the past year? If so, by whom?: No Do you feel safe in your current relationship?: Yes Is there a partner from a previous relationship who is making you feel unsafe now?: No Are you made to feel afraid or neglected: No Advance Directives: No Advance Directives Information Provided: No Advance Directives on File: No Do you have thoughts of harming others: None Do you have a plan to hurt others: No Plan Recently lost weight without trying: Unsure Nutrition Risks: No Nutritional Risk Poor oral hygiene: No service: No Sexual orientation: Straight/Heterosexual Meds Allergies Allergy/AdvReac Type Severity Reaction Status Date / Time No Known Allergies Allergy Verified 02/02/25 22:13 Active Medications: Current Medications Acetaminophen (Acetaminophen 325 Mg Tablet) 975 mg PO TID PRN PRN Reason: Pain, Mild (Pain Scale 1-3) Last Admin: 02/03/25 08:28 Dose: 975 mg Al Hydroxide/Mg Hydroxide (Magnesium Hydrox/Alum Hydrox 30 Ml Oral.Susp) 30 ml PO Q6H PRN PRN Reason: Heartburn/Nausea Gabapentin (Gabapentin 300 Mg Capsule) 300 mg PO BID [facility] Last Admin: 02/03/25 08:27 Dose: 300 mg Hydroxyzine HCl (Hydroxyzine Hcl 25 Mg Tablet) 25 mg PO Q6H PRN PRN Reason: mild anxiety Last Admin: 02/03/25 08:27 Dose: 25 mg Magnesium Hydroxide (Milk Of Magnesia 30 Ml Oral.Susp) 30 ml PO DAILY PRN PRN Reason: Constipation Melatonin (Melatonin 3 Mg Tablet) 6 mg PO BEDTIME LILIA Last Admin: 02/02/25 23:30 Dose: 6 mg Methocarbamol (Methocarbamol 500 Mg Tablet) 1,000 mg PO QID PRN PRN Reason: muscle spasm Last Admin: 02/03/25 05:07 Dose: 1,000 mg Nicotine (Nicotine 21 Mg Patch.Td24) 21 mg TRANSDERMA DAILY PRN PRN Reason: nicotine craving Nicotine Polacrilex (Nicotine Polacrilex 2 Mg Gum) 2 mg BUCCAL Q2H PRN PRN Reason: Nicotine Cravings Non-Formulary Medication (Cefpodoxime) 200 mg PO BID [facility] Olanzapine (Olanzapine 5 Mg Tablet) 5 mg PO TID PRN PRN Reason: agitation Last Admin: 02/03/25 05:07 Dose: 5 mg Tamsulosin HCl (Tamsulosin Hcl 0.4 Mg Capsule) 0.4 mg PO BEDTIME LILIA Trazodone HCl (Trazodone Hcl 50 Mg Tablet) 50 mg PO BEDTIME MRX1 PRN PRN Reason: Insomnia Last Admin: 02/03/25 00:43 Dose: 50 mg Home Medications ?Medication ?Instructions ?Recorded ?Confirmed ?Last Taken ?Type acetaminophen 500 mg tablet 1,000 mg PO TID 02/02/25 02/02/25 Unknown History cefpodoxime 200 mg tablet 200 mg PO BID 02/02/25 02/02/25 02/02/25 History gabapentin 300 mg tablet 300 mg PO BID 02/02/25 02/02/25 02/02/25 History methocarbamol 500 mg tablet 1,000 mg PO QID 02/02/25 02/02/25 Unknown History tamsulosin 0.4 mg capsule 0.4 mg PO BEDTIME 02/02/25 02/02/25 Unknown History Physical Exam Vital Signs and Narrative: Vital Signs: Last Vital Signs Temp 97.3 F 02/03/25 08:00 Pulse 76 02/03/25 08:00 Resp 16 02/03/25 08:00 BP 144/80 H 02/03/25 08:00 Pulse Ox 99 02/03/25 08:00 O2 Del Method Room Air 02/03/25 08:00 BMI result Body Mass Index 29.1 Alert and oriented X3, calm and cooperative. Answers questions. Neuro: CN II-X11 intact, no deficits, visual acuity intact EYES: PERRLA, EOM intact ENT: Hearing intact, MMM Cardiac: S1 S2 RRR, No ectopy Pulmonary: Lungs clear to auscultation, No increased WOB. Abdominal: BS active in all 4 quadrants, no guarding or tenderness MSK: Strength 5/5 upper and lower extremities. : Deferred Extremities: No edema in lower extremities Psych: Mood stable, Quiet and cooperative. Skin: Warm and dry, Intact Results Labs 02/03/25 08:07 Labs: Laboratory Results - last 24 hr 02/03/25 08:07 Anion Gap 11 L Estim Creat Clear Calc 102.8 Estimated GFR > 60 Random Glucose 89 Estimat Average Glucose 103 Hemoglobin A1c % 5.2 Calcium 9.5 Magnesium 2.3 Total Bilirubin 0.5 AST 59 H ALT 37 Alkaline Phosphatase 60 Total Protein 7.1 Albumin 4.8 Triglycerides 93 Cholesterol 180 LDL Cholesterol, Calc 121 H HDL Cholesterol 41 Assessment and Plan (1) Spondylosis: Status: Acute Plan 30-year-old male with a past medical history of spinal spondylosis and manic episode. Admitted to inpatient psychiatric unit for stabilization. Manic episode Treatment per psychiatric team Lumbar spine spondylosis Continue gabapentin 300 b.i.d. Robaxin p.r.n. Tizanidine p.r.n. Lidoderm patch Nephrolithiasis Continue Flomax Ultrasound to rule out obstructing stone Urinalysis Thank you for allowing me to participate in the care of this patient. Will follow with you, please notify medical provider with any changes in condition or concerns.
[2025-02-03 09:02] LABS: Free T4 (Free Thyroxine) 1.05 ng/dL (0.71-1.85); Thyroid Stimulating Hormone 2.92 uIU/mL (0.32-4.0)
[2025-02-03 09:04] LABS: Vitamin B12 597 pg/mL (200-900)
--- NOTE | 2025-02-03 15:00 | HO.PSYADMNOT ---
HPI Date of Service: 02/03/25 Chief Complaint: Manic Episode Sources of Information: patient interviewed, chart reviewed and crisis/core team assessment reviewed HPI Subjective Notes: Conditional Voluntary Narrative: Mr. Draper is a 30 yo partnered M with no previous h/o psychiatric tx who presented to the [facility] ED due to back pain. He appeared manic. U tox was neg and he was transferred to [facility] for tx of yina after being medically cleared. Per ED note- pt presented to the ED 3x in the past month due to back pain. Dx'd with kidney stone, medically admitted from 01/30-01/31 and returned on 02/01 and was hyperverbal, unable to remain seated, reported elevated mood, hearing voices of 'myself' and decreased need for sleep. His fiance reported having concerns about pt's mental health in the past but he's never presented like this before. She reported that pt has been pacing all night and talking to himself. Lumbar spine MRI showed broad based disc protrusion of L5-S1, without spinal canal or neural foraminal stenosis. CT showed1-2 mm obstructing kidney stone. An antibiotic was ordered but unclear why. UA was neg. 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 He's been out on worker's comp and is undergoing PT. He took a shower and his right side was 'on fire' and he experienced R foot weakness, so he went to the ED. Got an rx for methocarbamol, which helped but it wasn't covered by his insurance. He had been taking tizanidine already and kept increasing the dose since he developed a tolerance and it made him hallucinate. He reports that he got stressed and called [phone] from his car to talk about his problems. He endorses racing thoughts, rapid speech, poor sleep in setting of pain but states that he wants to sleep. He notes that there is a family h/o bipolar d/o and he's felt like he might have bipolar d/o as well. Denies that his mood episodes have ever gotten him into trouble. Describes his mood as good and happy . Pt received prn olanzapine this am, which seems to have had minimal effect. He requested a medication for yina and received haldol 5 mg, 1 mg lorazepam and 25 mg benadryl. He refers to the haldol as a Hell fire pill that helped him sleep and would like to continue taking it. He reports all I want to do is sleep . 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 Substance History: Denies Trauma History: Denies Diagnostics Vital Signs (24Hr): Vital Signs - 24 hr 02/03/25 08:00 02/03/25 19:25 Temperature 97.3 F 97.2 F Pulse Rate 76 84 Respiratory Rate 16 16 Blood Pressure 144/80 H 132/74 Pulse Oximetry 99 98 Oxygen Delivery Method Room Air Room Air BMI result Body Mass Index 29.1 Labs 02/03/25 08:07 Labs: Laboratory Results - last 48 hr 02/03/25 02/03/25 08:07 18:32 Sodium 140 Potassium 4.1 Chloride 106 Carbon Dioxide 27 Anion Gap 11 L BUN 14 Creatinine 1.02 Estim Creat Clear Calc 102.8 Estimated GFR > 60 Random Glucose 89 Estimat Average Glucose 103 Hemoglobin A1c % 5.2 Calcium 9.5 Magnesium 2.3 Total Bilirubin 0.5 AST 59 H ALT 37 Alkaline Phosphatase 60 Total Protein 7.1 Albumin 4.8 Triglycerides 93 Cholesterol 180 LDL Cholesterol, Calc 121 H HDL Cholesterol 41 Vitamin B12 597 TSH 2.92 Free T4 1.05 Urine Color Yellow Urine Appearance Clear Urine pH 7.0 Ur Specific [place] <= 1.005 Urine Protein Negative Urine Glucose (UA) Negative Urine Ketones Negative Urine Blood Negative Urine Nitrite Negative Ur Leukocyte Esterase Negative Meds/Allergies Meds Home Medications ?Medication ?Instructions ?Recorded ?Confirmed ?Type acetaminophen 500 mg tablet 1,000 mg PO TID 02/02/25 02/02/25 History cefpodoxime 200 mg tablet 200 mg PO BID 02/02/25 02/02/25 History gabapentin 300 mg tablet 300 mg PO BID 02/02/25 02/02/25 History methocarbamol 500 mg tablet 1,000 mg PO QID 02/02/25 02/02/25 History tamsulosin 0.4 mg capsule 0.4 mg PO BEDTIME 02/02/25 02/02/25 History Allergies Allergies Allergy/AdvReac Type Severity Reaction Status Date / Time No Known Allergies Allergy Verified 02/02/25 22:13 Mental Status Exam Mental Status Exam Narrative: Appearance: Casually dressed. Well groomed. Good eye contact Attitude:Cooperative Speech: Pressured but redirectable Motor activity: hyperactive. no tics, tremors or dyskinesias. steady gait Mood: as noted above Affect: expansive Thought process: flight of ideas Thought content: denies SI/violent ideation. Perception: Denies AH/VH and does not appear to respond to internal stimuli Alert/oriented in all spheres Insight: fair Judgment: fair Assessment & Plan Assessment & Plan (1) Yina: Status: Acute Code(s): F30.9 - Manic episode, unspecified Assessment and Plan: Bipolar I d/o vs drug induced (tizanidine) Plan Mr. Draper is a 30 yo partnered M with no previous h/o psychiatric tx who presented to the [facility] ED due to back pain. He appeared manic. U tox was neg and he was transferred to [facility] for tx of yina after being medically cleared. Pt has a FHx of bipolar d/o. It sounds like this is his first manic episode, which occurred in the setting of sleep deprivation due to pain and reported tizanidine overuse. There are reports of manic episodes triggered by tizanidine. DDx includes bipolar I vs. drug induced yina. Plan: Admit to [facility] for safety and stabilization Legal status- CV 15 min safety checks VS per unit standard Reviewed medical admission note from hospitalist. Input appreciated. She is ordering an ultrasound to r/o obstructing kidney stone. Pt is agreeable w/ starting Depakote for tx of yina. Ordered haldol 5 mg and lorazepam 1 mg tid prn for agitation and prn zolpidem for insomnia (due to potential risk of trazodone exacerbating yina). Patient educated on: diagnosis, medication risk/benefits and therapeutic strategies Reason for continued inpatient stay Substantial Risk for: med/psych decompensation Statement Statement: I have reviewed the history and physical and performed a pertinent examination on my patient. No changes have occurred unless specified. If the History and Physical was not performed prior to admission, the Hospitalist's service will be consulted for completing the admission physical. Time Spent With Patient Time: Total time managing care of this patient today ____ minutes.
[2025-02-03 18:45] LABS: Appearance Urine Clear; Glucose Urine UA Negative (Negative); PH 7.0 (5.0-9.0); Specific Gravity - Urine <= 1.005 (1.005-1.025)
[2025-02-03 19:25] VITALS: BP 132/74; PULSE 84; RESP 16; TEMP 36.2; O2SAT 98
[2025-02-03] MEDS: Divalproex Sodium ER 250 MG TAB.ER.24H 750 MG PO (21:11)
[2025-02-04 08:37] VITALS: BP 145/84; PULSE 99; RESP 16; TEMP 36.4; O2SAT 99
--- NOTE | 2025-02-04 10:12 | P.PNPSI_ITS ---
Subjective Subjective Date of Service: 02/04/25 Reason For Visit: Manic Episode Subjective Notes: Conditional Voluntary Healthcare Proxy: No Guardianship: No Medical Problems Affecting Mental Status: No Interim History: Medical record and nursing notes reviewed; case discussed during rounds with team/nursing staff, and met with patient for supportive therapy/psychoeducation, as well as medication management. Meet with patient in group room, report pain is under control and rated a 4/10. Report he loves to be in pain at 5/10 as it gives me energy . Report sleep has been improved compared to the past. Report he eats too much . Denies SI/SIB/HI/AVH. Patient asks he can leave today do whatever I have to do . Patient shows staff patient shows staff the picture his son. Later on when patient saw this provider in dining area, he asked if he can have 2 more minutes to talk about [place] to [place]. He says states that he wants to travel there but he can not sitting longer than 3 hours because of the pain. Per record, patient was medication compliant, slept for 7 hours last night, and attended groups. Started 1st dose of Depakote, tolerate with it well. Denies side effects. Pending effect, patient is manic, racing thoughts, hyperactivity, overly bright, but pleasant and cooperative upon approach. Review with patient regarding PRNs available, patient is aware that he has to ask for p.r.n continue with. Current treatment plan continue with current treatment plan. We will be benefit to have Depakote increase the next day or two. We will do collateral with family regarding medication history. Medication Compliance: Yes Side effects from medications: No Attending Groups: Intermittent Review of Systems Acute medical concerns: No Medical Review of Systems: unchanged Review of Systems Review of Systems Constitutional: Denies fatigue and Denies fever(s) Cardiovascular: Denies chest pain and Denies dyspnea Respiratory: Denies dyspnea Gastrointestinal: Denies abdominal pain Psychiatric: denies suicidal ideation Endocrine: Denies fatigue Pain is tolerable. Mental Status Exam Mental Status Exam Narrative: Appearance: Casually dressed. Well groomed. No ADL's issues. Good eye contact Attitude:pleasant and Cooperative Speech: Pressured, fast in rate, hyperverbal but redirectable Motor activity: manic, hyperactive. no tics, tremors or dyskinesias. steady gait Mood: good Affect: expansive Thought process: flight of ideas, racing thoughts Thought content: denies SI/SIB/HI/AVH Perception: Denies AH/VH and does not appear to respond to internal stimuli Alert/oriented in all spheres Insight: fair Judgment: poor Diagnostics Vital Signs (24Hr): Vital Signs - 24 hr 02/03/25 19:25 02/04/25 08:37 Temperature 97.2 F 97.5 F Pulse Rate 84 99 Respiratory Rate 16 16 Blood Pressure 132/74 145/84 H Pulse Oximetry 98 99 Oxygen Delivery Method Room Air Room Air BMI result Body Mass Index 29.1 Labs 02/03/25 08:07 Labs: Laboratory Results - last 48 hr 02/03/25 02/03/25 08:07 18:32 Sodium 140 Potassium 4.1 Chloride 106 Carbon Dioxide 27 Anion Gap 11 L BUN 14 Creatinine 1.02 Estim Creat Clear Calc 102.8 Estimated GFR > 60 Random Glucose 89 Estimat Average Glucose 103 Hemoglobin A1c % 5.2 Calcium 9.5 Magnesium 2.3 Total Bilirubin 0.5 AST 59 H ALT 37 Alkaline Phosphatase 60 Total Protein 7.1 Albumin 4.8 Triglycerides 93 Cholesterol 180 LDL Cholesterol, Calc 121 H HDL Cholesterol 41 Vitamin B12 597 TSH 2.92 Free T4 1.05 Urine Color Yellow Urine Appearance Clear Urine pH 7.0 Ur Specific [place] <= 1.005 Urine Protein Negative Urine Glucose (UA) Negative Urine Ketones Negative Urine Blood Negative Urine Nitrite Negative Ur Leukocyte Esterase Negative Imaging Radiology Impressions: ITS Impressions Renal Ultrasound 02/03/25 17:44 IMPRESSION: Mild bilateral hydronephrosis. No renal calculi are identified. If there is clinical concern for ureteral calculi, unenhanced CT is recommended. Electronically signed by: Bud Phan MD 02/04/2025 07:18 AM [facility] [place] Medications Medications Current Medications Acetaminophen (Acetaminophen 325 Mg Tablet) 975 mg PO TID PRN PRN Reason: Pain, Mild (Pain Scale 1-3) Last Admin: 02/04/25 09:24 Dose: 975 mg Al Hydroxide/Mg Hydroxide (Magnesium Hydrox/Alum Hydrox 30 Ml Oral.Susp) 30 ml PO Q6H PRN PRN Reason: Heartburn/Nausea Diphenhydramine HCl (Diphenhydramine Hcl 25 Mg Capsule) 50 mg PO Q8H PRN PRN Reason: Extrapyramidal Effects Divalproex Sodium (Divalproex Sodium Er 250 Mg Tab.Er.24h) 750 mg PO BEDTIME LILIA Last Admin: 02/03/25 21:11 Dose: 750 mg Gabapentin (Gabapentin 400 Mg Capsule) 400 mg PO BID LILIA Last Admin: 02/04/25 08:21 Dose: 400 mg Haloperidol (Haloperidol 5 Mg Tablet) 5 mg PO TID PRN PRN Reason: agitation Hydroxyzine HCl (Hydroxyzine Hcl 25 Mg Tablet) 25 mg PO Q6H PRN PRN Reason: mild anxiety Last Admin: 02/03/25 08:27 Dose: 25 mg Lidocaine (Lidocaine 4 % Patch Adh..Patch) 2 patch TRANSDERMA DAILY LILIA; Protocol Lorazepam (Lorazepam 1 Mg Tablet) 1 mg PO TID PRN PRN Reason: agitation Magnesium Hydroxide (Milk Of Magnesia 30 Ml Oral.Susp) 30 ml PO DAILY PRN PRN Reason: Constipation Melatonin (Melatonin 3 Mg Tablet) 6 mg PO BEDTIME [facility] Last Admin: 02/03/25 21:12 Dose: 6 mg Methocarbamol (Methocarbamol 500 Mg Tablet) 1,000 mg PO QID PRN PRN Reason: muscle spasm Last Admin: 02/03/25 21:12 Dose: 1,000 mg Nicotine (Nicotine 21 Mg Patch.Td24) 21 mg TRANSDERMA DAILY PRN PRN Reason: nicotine craving Nicotine Polacrilex (Nicotine Polacrilex 2 Mg Gum) 2 mg BUCCAL Q2H PRN PRN Reason: Nicotine Cravings Tamsulosin HCl (Tamsulosin Hcl 0.4 Mg Capsule) 0.4 mg PO BEDTIME [facility] Tizanidine HCl (Tizanidine Hcl 4 Mg Tablet) 4 mg PO TID PRN PRN Reason: Lower back pain Zolpidem Tartrate (Zolpidem Tartrate 5 Mg Tablet) 5 mg PO BEDTIME MRX1 PRN PRN Reason: Insomnia Last Admin: 02/03/25 23:11 Dose: 5 mg Allergies Allergies Allergy/AdvReac Type Severity Reaction Status Date / Time No Known Allergies Allergy Verified 02/02/25 22:13 Assessment & Plan Assessment & Plan (1) Yina: Status: Acute Code(s): F30.9 - Manic episode, unspecified Assessment and Plan: Bipolar I d/o vs drug induced (tizanidine) Plan Mr. Draper is a 30 yo partnered M with no previous h/o psychiatric tx who presented to the [place] ED due to back pain. He appeared manic. U tox was neg and he was transferred [place] [facility] [place] tx of yina after being medically cleared. Pt has a FHx of bipolar d/o. It sounds like this is his first manic episode, which occurred in the setting of sleep deprivation due to pain and reported tizanidine overuse. There are reports of manic episodes triggered by tizanidine. DDx includes bipolar I vs. drug induced yina. Hospital course: 02/04/25: Meet with patient in group room, report pain is under control and rated a 4/10. Report he loves to be in pain at 5/10 as it gives me energy . Report sleep has been improved compared to the past. Report he eats too much . Denies SI/SIB/HI/AVH. Patient asks he can leave today do whatever I have to do . Patient shows staff patient shows staff the picture his son. Later on when patient saw this provider in dining area, he asked if he can have 2 more minutes to talk about [place] to [place]. He says states that he wants to travel there but he can not sitting longer than 3 hours because of the pain. Per record, patient was medication compliant, slept for 7 hours last night, and attended groups. Started 1st dose of Depakote, tolerate with it well. Denies side effects. Pending effect, patient is manic, racing thoughts, hyperactivity, overly bright, but pleasant and cooperative upon approach. Review with patient regarding PRNs available, patient is aware that he has to ask for p.r.n continue with. Current treatment plan continue with current treatment plan. We will be benefit to have Depakote increase the next day or two. We will do collateral with family regarding medication history. Plan: Admit to M3 for safety and stabilization Legal status- CV 15 min safety checks VS per unit standard Reviewed medical admission note from hospitalist. Input appreciated. She is ordering an ultrasound to r/o obstructing kidney stone. Pt is agreeable w/ starting Depakote for tx of yina. Ordered haldol 5 mg and lorazepam 1 mg tid prn for agitation and prn zolpidem for insomnia (due to potential risk of trazodone exacerbating yina). 02/03/25: Kidney ultra sound: Per provider note: Mild bilateral hydronephrosis. No renal calculi are identified. If there is clinical concern for ureteral calculi, unenhanced CT is recommended. recommended. Patient educated on: diagnosis, medication risk/benefits and therapeutic strategies Informed Consent: understands and further education needed Reason for continued inpatient stay Substantial Risk for: med/psych decompensation Time Spent With Patient Time: Total time managing care of this patient today ____ minutes.
[2025-02-04] MEDS: Lidocaine 4 % Patch ADH..PATCH 2 PATCH TRANSDERMA (10:44)
[2025-02-04 19:20] VITALS: BP 137/72; PULSE 97; RESP 16; TEMP 36.6; O2SAT 98
[2025-02-04] MEDS: Divalproex Sodium ER 250 MG TAB.ER.24H 750 MG PO (21:11)
[2025-02-05 07:00] VITALS: BMI 29.3
[2025-02-05 08:00] VITALS: BP 133/66; PULSE 95; RESP 16; TEMP 36.3; O2SAT 97
[2025-02-05] MEDS: Lidocaine 4 % Patch ADH..PATCH 2 PATCH TRANSDERMA (08:38)
[2025-02-05] MEDS: Lidocaine 4 % Patch ADH..PATCH 1 PATCH TRANSDERMA (09:46)
[2025-02-05 19:37] VITALS: BP 136/91; PULSE 104; RESP 16; TEMP 36.1; O2SAT 98
[2025-02-05] MEDS: Divalproex Sodium ER 250 MG TAB.ER.24H 750 MG PO (21:51)
--- NOTE | 2025-02-05 23:37 | HO.PSYCHPN ---
Subjective Subjective Date of Service: 02/05/25 Reason For Visit: Manic Episode Subjective Notes: Conditional Voluntary Healthcare Proxy: No Guardianship: No Medical Problems Affecting Mental Status: No Interim History: Medical record and nursing notes reviewed; case discussed during rounds with team/nursing staff, and met with patient for supportive therapy/psychoeducation, as well as medication management. Meet with patient in sensory room. Report improving in sleep and appetite. Pain on lower body 10. Denies SI/SIB/HI/AVH. Less hyper, slightly improve in manic behavior. Compliant wiht meds. taking PRN with HS which are helpful. Explain to patient regarding VPA level in a couple days. Patient is receptive. Medication Compliance: Yes Side effects from medications: No Attending Groups: Yes Review of Systems Acute medical concerns: No Medical Review of Systems: unchanged Review of Systems Review of Systems Constitutional: Denies fatigue and Denies fever(s) Cardiovascular: Denies chest pain and Denies dyspnea Respiratory: Denies dyspnea Gastrointestinal: Denies abdominal pain Psychiatric: denies suicidal ideation Endocrine: Denies fatigue Pain is tolerable /10 Mental Status Exam Mental Status Exam Narrative: Appearance: Casually dressed. Well groomed. No ADL's issues. Good eye contact Attitude:pleasant and Cooperative Speech: Pressured, fast in rate, hyperverbal but redirectable Motor activity: manic, hyperactive. no tics, tremors or dyskinesias. steady gait Mood: good Affect: expansive Thought process: flight of ideas, racing thoughts with slightly improved Thought content: denies SI/SIB/HI/AVH Perception: Denies AH/VH and does not appear to respond to internal stimuli Alert/oriented in all spheres Insight: fair Judgment: poor Diagnostics Vital Signs (24Hr): Vital Signs - 24 hr 02/05/25 08:00 Temperature 97.4 F Pulse Rate 95 Respiratory Rate 16 Blood Pressure 133/66 Pulse Oximetry 97 Oxygen Delivery Method Room Air BMI result Body Mass Index 29.3 Labs 02/03/25 08:07 Imaging Radiology Impressions: ITS Impressions Renal Ultrasound 02/03/25 17:44 IMPRESSION: Mild bilateral hydronephrosis. No renal calculi are identified. If there is clinical concern for ureteral calculi, unenhanced CT is recommended. Electronically signed by: Bud Phan MD 02/04/2025 07:18 AM [facility] [place] Medications Medications Current Medications Acetaminophen (Acetaminophen 325 Mg Tablet) 975 mg PO TID PRN PRN Reason: Pain, Mild (Pain Scale 1-3) Last Admin: 02/05/25 15:35 Dose: 975 mg Al Hydroxide/Mg Hydroxide (Magnesium Hydrox/Alum Hydrox 30 Ml Oral.Susp) 30 ml PO Q6H PRN PRN Reason: Heartburn/Nausea Diphenhydramine HCl (Diphenhydramine Hcl 25 Mg Capsule) 50 mg PO Q8H PRN PRN Reason: Extrapyramidal Effects Divalproex Sodium (Divalproex Sodium Er 250 Mg Tab.Er.24h) 750 mg PO BEDTIME LILIA Last Admin: 02/05/25 21:51 Dose: 750 mg Gabapentin (Gabapentin 400 Mg Capsule) 400 mg PO BID LILIA Last Admin: 02/05/25 21:51 Dose: 400 mg Haloperidol (Haloperidol 5 Mg Tablet) 5 mg PO TID PRN PRN Reason: agitation Last Admin: 02/05/25 21:54 Dose: 5 mg Hydroxyzine HCl (Hydroxyzine Hcl 25 Mg Tablet) 25 mg PO Q6H PRN PRN Reason: mild anxiety Last Admin: 02/03/25 08:27 Dose: 25 mg Lidocaine (Lidocaine 4 % Patch Adh..Patch) 2 patch TRANSDERMA DAILY [facility]; Protocol Last Admin: 02/05/25 08:38 Dose: 1 patch Lorazepam (Lorazepam 1 Mg Tablet) 1 mg PO TID PRN PRN Reason: agitation Last Admin: 02/05/25 15:34 Dose: 1 mg Magnesium Hydroxide (Milk Of Magnesia 30 Ml Oral.Susp) 30 ml PO DAILY PRN PRN Reason: Constipation Melatonin (Melatonin 3 Mg Tablet) 6 mg PO BEDTIME LILIA Last Admin: 02/05/25 21:50 Dose: 6 mg Methocarbamol (Methocarbamol 500 Mg Tablet) 1,000 mg PO QID PRN PRN Reason: muscle spasm Last Admin: 02/05/25 21:51 Dose: 1,000 mg Nicotine (Nicotine 21 Mg Patch.Td24) 21 mg TRANSDERMA DAILY PRN PRN Reason: nicotine craving Nicotine Polacrilex (Nicotine Polacrilex 2 Mg Gum) 2 mg BUCCAL Q2H PRN PRN Reason: Nicotine Cravings Last Admin: 02/05/25 20:03 Dose: 2 mg Tamsulosin HCl (Tamsulosin Hcl 0.4 Mg Capsule) 0.4 mg PO BEDTIME LILIA Last Admin: 02/05/25 21:50 Dose: 0.4 mg Tizanidine HCl (Tizanidine Hcl 4 Mg Tablet) 4 mg PO TID PRN PRN Reason: Lower back pain Zolpidem Tartrate (Zolpidem Tartrate 5 Mg Tablet) 5 mg PO BEDTIME MRX1 PRN PRN Reason: Insomnia Last Admin: 02/03/25 23:11 Dose: 5 mg Allergies Allergies Allergy/AdvReac Type Severity Reaction Status Date / Time No Known Allergies Allergy Verified 02/02/25 22:13 Assessment & Plan Assessment & Plan (1) Yina: Status: Acute Code(s): F30.9 - Manic episode, unspecified Assessment and Plan: Bipolar I d/o vs drug induced (tizanidine) Plan Mr. Draper is a 30 yo partnered M with no previous h/o psychiatric tx who presented to the [place] ED due to back pain. He appeared manic. U tox was neg and he was transferred to [facility] [place] [facility] for tx of yina after being medically cleared. Pt has a FHx of bipolar d/o. It sounds like this is his first manic episode, which occurred in the setting of sleep deprivation due to pain and reported tizanidine overuse. There are reports of manic episodes triggered by tizanidine. DDx includes bipolar I vs. drug induced yina. Hospital course: 02/04/25: Meet with patient in group room, report pain is under control and rated a 4/10. Report he loves to be in pain at 5/10 as it gives me energy . Report sleep has been improved compared to the past. Report he eats too much . Denies SI/SIB/HI/AVH. Patient asks he can leave today do whatever I have to do . Patient shows staff patient shows staff the picture his son. Later on when patient saw this provider in dining area, he asked if he can have 2 more minutes to talk about [place] to [place]. He says states that he wants to travel there but he can not sitting longer than 3 hours because of the pain. Per record, patient was medication compliant, slept for 7 hours last night, and attended groups. Started 1st dose of Depakote, tolerate with it well. Denies side effects. Pending effect, patient is manic, racing thoughts, hyperactivity, overly bright, but pleasant and cooperative upon approach. Review with patient regarding PRNs available, patient is aware that he has to ask for p.r.n continue with. Current treatment plan continue with current treatment plan. We will be benefit to have Depakote increase the next day or two. We will do collateral with family regarding medication history. 02/05/25: Meet with patient in sensory room. Report improving in sleep and appetite. Pain on lower body 07/19. Denies SI/SIB/HI/AVH. Less hyper, slightly improve in manic behavior. Compliant wiht meds. taking PRN with HS which are helpful. Explain to patient regarding VPA level in a couple days. Patient is receptive. Plan: Admit to M3 for safety and stabilization Legal status- CV 15 min safety checks VS per unit standard Reviewed medical admission note from hospitalist. Input appreciated. She is ordering an ultrasound to r/o obstructing kidney stone. Pt is agreeable w/ starting Depakote for tx of yina. Ordered haldol 5 mg and lorazepam 1 mg tid prn for agitation and prn zolpidem for insomnia (due to potential risk of trazodone exacerbating yina). 02/03/25: Kidney ultra sound: Per provider note: Mild bilateral hydronephrosis. No renal calculi are identified. If there is clinical concern for ureteral calculi, unenhanced CT is recommended. recommended. Patient educated on: diagnosis, medication risk/benefits and therapeutic strategies Informed Consent: understands and further education needed Reason for continued inpatient stay Substantial Risk for: med/psych decompensation Time Spent With Patient Time: Total time managing care of this patient today ____ minutes.
--- NOTE | 2025-02-06 05:51 | P.PNPSI_ITS ---
Subjective Subjective Date of Service: 02/06/25 Reason For Visit: Manic Episode Interim History: Chart reviewed. Case discussed in team Pt reports that he's feeling better-- thoughts have slowed down, thinking more clearly, sleep has improved. Pain is under much better control. Denies SI. Denies AHVH. He reviewed the stressors leading up to this admission- pain, sleep deprivation 2/2 pain He asks about d/c plan and we discussed possible d/c next Tues if he is stable. Medication Compliance: Yes Side effects from medications: No Mental Status Exam Mental Status Exam Narrative: Appearance: Casually dressed. Well groomed. Good eye contact Attitude:Cooperative Speech: Mildly pressured, improved significantly since admission. Easily redirectable Motor activity: calm. no tics, tremors or dyskinesias. steady gait Mood: as noted above Affect: appropriate, reactive. not expansive or labile Thought process: goal directed Thought content: denies SI/violent ideation. Perception: Denies AH/VH and does not appear to respond to internal stimuli Alert/oriented in all spheres Insight: fair Judgment: fair Diagnostics Vital Signs (24Hr): Vital Signs - 24 hr 02/05/25 08:00 02/05/25 19:37 Temperature 97.4 F 97.0 F Pulse Rate 95 104 H Respiratory Rate 16 16 Blood Pressure 133/66 136/91 H Pulse Oximetry 97 98 Oxygen Delivery Method Room Air Room Air BMI result Body Mass Index 29.3 Labs 02/03/25 08:07 Imaging Radiology Impressions: ITS Impressions Renal Ultrasound 02/03/25 17:44 IMPRESSION: Mild bilateral hydronephrosis. No renal calculi are identified. If there is clinical concern for ureteral calculi, unenhanced CT is recommended. Electronically signed by: Bud Phan MD 02/04/2025 07:18 AM [facility] Medications Medications Current Medications Acetaminophen (Acetaminophen 325 Mg Tablet) 975 mg PO TID PRN PRN Reason: Pain, Mild (Pain Scale 1-3) Last Admin: 02/05/25 15:35 Dose: 975 mg Al Hydroxide/Mg Hydroxide (Magnesium Hydrox/Alum Hydrox 30 Ml Oral.Susp) 30 ml PO Q6H PRN PRN Reason: Heartburn/Nausea Diphenhydramine HCl (Diphenhydramine Hcl 25 Mg Capsule) 50 mg PO Q8H PRN PRN Reason: Extrapyramidal Effects Divalproex Sodium (Divalproex Sodium Er 250 Mg Tab.Er.24h) 750 mg PO BEDTIME [facility] Last Admin: 02/05/25 21:51 Dose: 750 mg Gabapentin (Gabapentin 400 Mg Capsule) 400 mg PO BID [facility] Last Admin: 02/05/25 21:51 Dose: 400 mg Haloperidol (Haloperidol 5 Mg Tablet) 5 mg PO TID PRN PRN Reason: agitation Last Admin: 02/05/25 21:54 Dose: 5 mg Hydroxyzine HCl (Hydroxyzine Hcl 25 Mg Tablet) 25 mg PO Q6H PRN PRN Reason: mild anxiety Last Admin: 02/03/25 08:27 Dose: 25 mg Lidocaine (Lidocaine 4 % Patch Adh..Patch) 2 patch TRANSDERMA DAILY [facility]; Protocol Last Admin: 02/05/25 08:38 Dose: 1 patch Lorazepam (Lorazepam 1 Mg Tablet) 1 mg PO TID PRN PRN Reason: agitation Last Admin: 02/05/25 15:34 Dose: 1 mg Magnesium Hydroxide (Milk Of Magnesia 30 Ml Oral.Susp) 30 ml PO DAILY PRN PRN Reason: Constipation Melatonin (Melatonin 3 Mg Tablet) 6 mg PO BEDTIME [facility] Last Admin: 02/05/25 21:50 Dose: 6 mg Methocarbamol (Methocarbamol 500 Mg Tablet) 1,000 mg PO QID PRN PRN Reason: muscle spasm Last Admin: 02/05/25 21:51 Dose: 1,000 mg Nicotine (Nicotine 21 Mg Patch.Td24) 21 mg TRANSDERMA DAILY PRN PRN Reason: nicotine craving Nicotine Polacrilex (Nicotine Polacrilex 2 Mg Gum) 2 mg BUCCAL Q2H PRN PRN Reason: Nicotine Cravings Last Admin: 02/05/25 20:03 Dose: 2 mg Tamsulosin HCl (Tamsulosin Hcl 0.4 Mg Capsule) 0.4 mg PO BEDTIME [facility] Last Admin: 02/05/25 21:50 Dose: 0.4 mg Tizanidine HCl (Tizanidine Hcl 4 Mg Tablet) 4 mg PO TID PRN PRN Reason: Lower back pain Zolpidem Tartrate (Zolpidem Tartrate 5 Mg Tablet) 5 mg PO BEDTIME MRX1 PRN PRN Reason: Insomnia Last Admin: 02/03/25 23:11 Dose: 5 mg Allergies Allergies Allergy/AdvReac Type Severity Reaction Status Date / Time No Known Allergies Allergy Verified 02/02/25 22:13 Assessment & Plan Assessment & Plan (1) Yina: Status: Acute Code(s): F30.9 - Manic episode, unspecified Assessment and Plan: Bipolar I d/o vs drug induced (tizanidine) Plan Mr. Draper is a 30 yo partnered M with no previous h/o psychiatric tx who presented to the [place] due to back pain. He appeared manic. U tox was neg and he was transferred to [facility] for tx of yina after being medically cleared. Pt has a FHx of bipolar d/o. It sounds like this is his first manic episode, which occurred in the setting of sleep deprivation due to pain and reported tizanidine overuse. There are reports of manic episodes triggered by tizanidine. DDx includes bipolar I vs. drug induced yina. Hospital course: Plan: Admit to M3 for safety and stabilization Legal status- CV 15 min safety checks VS per unit standard Reviewed medical admission note from hospitalist. Input appreciated. She is ordering an ultrasound to r/o obstructing kidney stone. Pt is agreeable w/ starting Depakote for tx of yina. Ordered haldol 5 mg and lorazepam 1 mg tid prn for agitation and prn zolpidem for insomnia (due to potential risk of trazodone exacerbating yina). 02/03/25: Kidney ultra sound: Per provider note: Mild bilateral hydronephrosis. No renal calculi are identified. If there is clinical concern for ureteral calculi, unenhanced CT is recommended. recommended. 02/04/25: Meet with patient in group room, report pain is under control and rated a 4/10. Report he loves to be in pain at 5/10 as it gives me energy . Report sleep has been improved compared to the past. Report he eats too much . Denies SI/SIB/HI/AVH. Patient asks he can leave today do whatever I have to do . Patient shows staff patient shows staff the picture his son. Later on when patient saw this provider in dining area, he asked if he can have 2 more minutes to talk [place]. He says states that he wants to travel there but he can not sitting longer than 3 hours because of the pain. Per record, patient was medication compliant, slept for 7 hours last night, and attended groups. Started 1st dose of Depakote, tolerate with it well. Denies side effects. Pending effect, patient is manic, racing thoughts, hyperactivity, overly bright, but pleasant and cooperative upon approach. Review with patient regarding PRNs available, patient is aware that he has to ask for p.r.n continue with. Current treatment plan continue with current treatment plan. We will be benefit to have Depakote increase the next day or two. We will do collateral with family regarding medication history. 02/05/25: Meet with patient in sensory room. Report improving in sleep and appetite. Pain on lower body 07/19. Denies SI/SIB/HI/AVH. Less hyper, slightly improve in manic behavior. Compliant wiht meds. taking PRN with HS which are helpful. Explain to patient regarding VPA level in a couple days. Patient is receptive. 02/06: ordered VPA level for tomorrow am. Dose can be titrated by covering psychiatric provider over the weekend if under the therapeutic range. Patient educated on: diagnosis and medication risk/benefits Informed Consent: understands Reason for continued inpatient stay Substantial Risk for: med/psych decompensation Time Spent With Patient Time: Total time managing care of this patient today ____ minutes.
[2025-02-06 08:50] VITALS: BP 138/74; PULSE 82; RESP 20; TEMP 36.2; O2SAT 98
[2025-02-06] MEDS: Lidocaine 4 % Patch ADH..PATCH 2 PATCH TRANSDERMA (11:09)
[2025-02-06 20:00] VITALS: BP 128/75; PULSE 88; RESP 14; TEMP 36.5; O2SAT 98
[2025-02-06] MEDS: Divalproex Sodium ER 250 MG TAB.ER.24H 750 MG PO (21:46)
[2025-02-07 07:10] VITALS: BP 122/76; PULSE 78; RESP 16; TEMP 36.3; O2SAT 97
[2025-02-07] MEDS: Lidocaine 4 % Patch ADH..PATCH 2 PATCH TRANSDERMA (08:43)
[2025-02-07 09:41] LABS: Alanine Aminotransferase 39 U/L (0-40); Albumin Level 4.8 g/dL (3.5-5.0); Alkaline Phosphatase 67 U/L (39-117); Aspartate Amino Transferase 37 U/L (5-37); Total Protein 7.2 g/dL (6.5-8.0)
[2025-02-07 20:00] VITALS: BP 141/73; PULSE 89; RESP 16; TEMP 36.6; O2SAT 97
[2025-02-07] MEDS: Divalproex Sodium ER 250 MG TAB.ER.24H 1250 MG PO (21:14)
--- NOTE | 2025-02-07 23:47 | P.PNPSI_ITS ---
Subjective Subjective Date of Service: 02/07/25 Reason For Visit: Manic Episode Subjective Notes: 3 Day Healthcare Proxy: No Guardianship: No Medical Problems Affecting Mental Status: No Interim History: Medical record and nursing notes reviewed; case discussed during rounds with team/nursing staff, and met with patient for supportive therapy/psychoeducation, as well as medication management. Met with patient after visit with mom. He is focused on discharge. He wants to be discharged today if possible, reporting that he only has 1 child and he missed his son. Reported that he has is a special jean-claude and special case when telling him that he is not being discharged today. Review with patient regarding VPA level which is 44.3 Sub therapeutic. Patient agreed to have Depakote increased up to 1,250 mg daily at bedtime. Explained to patient that we will need to recheck level in couple of days. No other safety concerns, pleasant and cooperative, Per nursing, patient slept for 7 hours, medication compliant, no side effects, was judaism preoccupied, hyper focused on discharge. He has a 3 day up on 02/10 and believes that he will be discharged on Sunday. Medication Compliance: Yes Side effects from medications: No Attending Groups: Yes Review of Systems Acute medical concerns: No Medical Review of Systems: unchanged Review of Systems Review of Systems Constitutional: Denies fatigue and Denies fever(s) Cardiovascular: Denies chest pain and Denies dyspnea Respiratory: Denies dyspnea Gastrointestinal: Denies abdominal pain Psychiatric: denies suicidal ideation Endocrine: Denies fatigue Pain is tolerable 5/10 Mental Status Exam Mental Status Exam Narrative: Appearance: Casually dressed. Well groomed. Good eye contact Attitude:Cooperative Speech: Mildly pressured, improved significantly since admission. Easily redirectable Motor activity: calm. no tics, tremors or dyskinesias. steady gait Mood: happy, cooperative Affect: appropriate, reactive. not expansive or labile Thought process: Perseverative on discharge, racing thoughts Thought content: denies SI/violent ideation. Perception: Denies AH/VH and does not appear to respond to internal stimuli Alert/oriented in all spheres Insight: fair Judgment: fair Diagnostics Vital Signs (24Hr): Vital Signs - 24 hr 02/07/25 07:10 02/07/25 20:00 Temperature 97.3 F 97.8 F Pulse Rate 78 89 Respiratory Rate 16 16 Blood Pressure 122/76 141/73 H Pulse Oximetry 97 97 Oxygen Delivery Method Room Air Room Air BMI result Body Mass Index 29.3 Labs 02/03/25 08:07 Labs: Laboratory Results - last 48 hr 02/07/25 09:09 Total Bilirubin 0.5 Direct Bilirubin 0.2 AST 37 ALT 39 Alkaline Phosphatase 67 Total Protein 7.2 Albumin 4.8 Valproic Acid 44.3 L Imaging Radiology Impressions: ITS Impressions Renal Ultrasound 02/03/25 17:44 IMPRESSION: Mild bilateral hydronephrosis. No renal calculi are identified. If there is clinical concern for ureteral calculi, unenhanced CT is recommended. Electronically signed by: Bud Phan MD 02/04/2025 07:18 AM [facility] Medications Medications Current Medications Acetaminophen (Acetaminophen 325 Mg Tablet) 975 mg PO TID PRN PRN Reason: Pain, Mild (Pain Scale 1-3) Last Admin: 02/07/25 08:41 Dose: 975 mg Al Hydroxide/Mg Hydroxide (Magnesium Hydrox/Alum Hydrox 30 Ml Oral.Susp) 30 ml PO Q6H PRN PRN Reason: Heartburn/Nausea Diphenhydramine HCl (Diphenhydramine Hcl 25 Mg Capsule) 50 mg PO Q8H PRN PRN Reason: Extrapyramidal Effects Divalproex Sodium (Divalproex Sodium Er 250 Mg Tab.Er.24h) 1,250 mg PO BEDTIME [facility] Last Admin: 02/07/25 21:14 Dose: 1,250 mg Docusate Sodium (Docusate Sodium 100 Mg Capsule) 100 mg PO BID [facility] Last Admin: 02/07/25 21:15 Dose: 100 mg Gabapentin (Gabapentin 400 Mg Capsule) 400 mg PO BID [facility] Last Admin: 02/07/25 21:14 Dose: 400 mg Haloperidol (Haloperidol 5 Mg Tablet) 5 mg PO TID PRN PRN Reason: agitation Last Admin: 02/05/25 21:54 Dose: 5 mg Hydroxyzine HCl (Hydroxyzine Hcl 25 Mg Tablet) 25 mg PO Q6H PRN PRN Reason: mild anxiety Last Admin: 02/03/25 08:27 Dose: 25 mg Lidocaine (Lidocaine 4 % Patch Adh..Patch) 2 patch TRANSDERMA DAILY [facility]; Protocol Last Admin: 02/07/25 08:43 Dose: 2 patch Lorazepam (Lorazepam 1 Mg Tablet) 1 mg PO TID PRN PRN Reason: agitation Last Admin: 02/06/25 21:48 Dose: 1 mg Magnesium Hydroxide (Milk Of Magnesia 30 Ml Oral.Susp) 30 ml PO DAILY PRN PRN Reason: Constipation Melatonin (Melatonin 3 Mg Tablet) 6 mg PO BEDTIME [facility] Last Admin: 02/07/25 21:15 Dose: 6 mg Methocarbamol (Methocarbamol 500 Mg Tablet) 1,000 mg PO QID PRN PRN Reason: muscle spasm Last Admin: 02/07/25 11:16 Dose: 1,000 mg Nicotine (Nicotine 21 Mg Patch.Td24) 21 mg TRANSDERMA DAILY PRN PRN Reason: nicotine craving Nicotine Polacrilex (Nicotine Polacrilex 2 Mg Gum) 2 mg BUCCAL Q2H PRN PRN Reason: Nicotine Cravings Last Admin: 02/06/25 14:58 Dose: 2 mg Tamsulosin HCl (Tamsulosin Hcl 0.4 Mg Capsule) 0.4 mg PO BEDTIME [facility] Last Admin: 02/07/25 21:14 Dose: 0.4 mg Tizanidine HCl (Tizanidine Hcl 4 Mg Tablet) 4 mg PO TID PRN PRN Reason: Lower back pain Last Admin: 02/07/25 15:42 Dose: 4 mg Zolpidem Tartrate (Zolpidem Tartrate 5 Mg Tablet) 5 mg PO BEDTIME MRX1 PRN PRN Reason: Insomnia Last Admin: 02/03/25 23:11 Dose: 5 mg Allergies Allergies Allergy/AdvReac Type Severity Reaction Status Date / Time No Known Allergies Allergy Verified 02/02/25 22:13 Assessment & Plan Assessment & Plan (1) Amy: Status: Acute Code(s): F30.9 - Manic episode, unspecified Assessment and Plan: Bipolar I d/o vs drug induced (tizanidine) Plan Mr. Draper is a 30 yo partnered M with no previous h/o psychiatric tx who presented to the [place] ED due to back pain. He appeared manic. U tox was neg and he was transferred to [facility] for tx of amy after being medically cleared. Pt has a FHx of bipolar d/o. It sounds like this is his first manic episode, which occurred in the setting of sleep deprivation due to pain and reported tizanidine overuse. There are reports of manic episodes triggered by tizanidine. DDx includes bipolar I vs. drug induced amy. Hospital course: Plan: Admit to M3 for safety and stabilization Legal status-3 day notice 02/10 15 min safety checks VS per unit standard Reviewed medical admission note from hospitalist. Input appreciated. She is ordering an ultrasound to r/o obstructing kidney stone. Pt is agreeable w/ starting Depakote for tx of amy. Ordered haldol 5 mg and lorazepam 1 mg tid prn for agitation and prn zolpidem for insomnia (due to potential risk of trazodone exacerbating amy). 02/03/25: Kidney ultra sound: Per provider note: Mild bilateral hydronephrosis. No renal calculi are identified. If there is clinical concern for ureteral calculi, unenhanced CT is recommended. recommended. 02/04/25: Meet with patient in group room, report pain is under control and rated a 4/10. Report he loves to be in pain at 5/10 as it gives me energy . Report sleep has been improved compared to the past. Report he eats too much . Denies SI/SIB/HI/AVH. Patient asks he can leave today do whatever I have to do . Patient shows staff patient shows staff the picture his son. Later on when patient saw this provider in dining area, he asked if he can have 2 more minutes to talk about [place]. He says states that he wants to travel there but he can not sitting longer than 3 hours because of the pain. Per record, patient was medication compliant, slept for 7 hours last night, and attended groups. Started 1st dose of Depakote, tolerate with it well. Denies side effects. Pending effect, patient is manic, racing thoughts, hyperactivity, overly bright, but pleasant and cooperative upon approach. Review with patient regarding PRNs available, patient is aware that he has to ask for p.r.n continue with. Current treatment plan continue with current treatment plan. We will be benefit to have Depakote increase the next day or two. We will do collateral with family regarding medication history. 02/05/25: Meet with patient in sensory room. Report improving in sleep and appetite. Pain on lower body 5/10. Denies SI/SIB/HI/AVH. Less hyper, slightly improve in manic behavior. Compliant wiht meds. taking PRN with HS which are helpful. Explain to patient regarding VPA level in a couple days. Patient is receptive. 02/06: ordered VPA level for tomorrow am. Dose can be titrated by covering psychiatric provider over the weekend if under the therapeutic range. 02/07/25: Met with patient after visit with mom. He is focused on discharge. He wants to be discharged today if possible, reporting that he only has 1 child and he missed his son. Reported that he has is a special jean-claude and special case when telling him that he is not being discharged today. Review with patient regarding VPA level which is 44.3 Sub therapeutic. Patient agreed to have Depakote increased up to 1,250 mg daily at bedtime. Explained to patient that we will need to recheck level in couple of days. No other safety concerns, pleasant and cooperative, Per nursing, patient slept for 7 hours, medication compliant, no side effects, was judaism preoccupied, hyper focused on discharge. He has a 3 day up on 02/10 and believes that he will be discharged on Sunday. Depakote 1,250 daily at HS for mood. Level in couple of days. Patient educated on: diagnosis, medication risk/benefits and therapeutic strategies Reason for continued inpatient stay Substantial Risk for: med/psych decompensation Time Spent With Patient Time: Total time managing care of this patient today ____ minutes.
[2025-02-08] MEDS: Magnesium Hydrox/Alum Hydrox 30 ML ORAL.SUSP PO (00:34)
[2025-02-08 07:40] VITALS: BP 132/87; PULSE 90; RESP 18; TEMP 35.9; O2SAT 99
[2025-02-08] MEDS: Lidocaine 4 % Patch ADH..PATCH 2 PATCH TRANSDERMA (08:39)
[2025-02-08 19:30] VITALS: BP 128/78; PULSE 97; RESP 16; TEMP 36.6; O2SAT 98
[2025-02-08] MEDS: Divalproex Sodium ER 250 MG TAB.ER.24H 750 MG PO (20:43)
--- NOTE | 2025-02-08 22:45 | P.PNPSI_ITS ---
Subjective Subjective Date of Service: 02/08/25 Reason For Visit: Manic Episode Subjective Notes: 3 Day Healthcare Proxy: No Guardianship: No Medical Problems Affecting Mental Status: No Interim History: Medical record and nursing notes reviewed; case discussed during rounds with team/nursing staff, and met with patient for supportive therapy/psychoeducation, as well as medication management. Patient about to shower, agreed to meet with this provider prior to getting to the shower. Reports some what by having diarrhea, and stomach pain yesterday/last night. He thinks is from Depakote dose increased yesterday. He agreed to divided the dose into different scheduled time. Advised patient also take medication with food. We will continue to monitor for possible side effects. Patient reported that he was told that he can be discharged on Sunday. Three days up on SundayFebruary 10. Reported that he has a lot of appointments in the future and he needs to go home and taking care that. He does believe he is not manic. He attributes his behavior is from the pain. Per nursing, patient slept for 6.5 hours. Went to groups, perseverative on discharge, medication compliant. No side effects except stomach pain/diarrhea which can be multiple factors. We will continue with current plan. Medication Compliance: Yes Side effects from medications: No (Stomach pain/diarrhea) Attending Groups: Yes Review of Systems Acute medical concerns: No Medical Review of Systems: unchanged Review of Systems Review of Systems Constitutional: Denies fatigue and Denies fever(s) Cardiovascular: Denies chest pain and Denies dyspnea Respiratory: Denies dyspnea Gastrointestinal: Denies abdominal pain Psychiatric: denies suicidal ideation Endocrine: Denies fatigue Pain is tolerable 5/10 Mental Status Exam Mental Status Exam Narrative: Appearance: Casually dressed. Well groomed. Good eye contact. No ADL's issues. Shower daily. Attitude:Cooperative Speech: improved significantly since admission. Not labile. Easily redirectable Motor activity: calm. no tics, tremors or dyskinesias. steady gait Mood: happy, cooperative Affect: appropriate, reactive. not expansive or labile Thought process: Perseverative on discharge. Thought content: denies SI/violent ideation. Perception: Denies AH/VH and does not appear to respond to internal stimuli Alert/oriented in all spheres Insight: fair Judgment: poor but improved Diagnostics Vital Signs (24Hr): Vital Signs - 24 hr 02/08/25 07:40 02/08/25 19:30 Temperature 96.6 F L 97.9 F Pulse Rate 90 97 Respiratory Rate 18 16 Blood Pressure 132/87 128/78 Pulse Oximetry 99 98 Oxygen Delivery Method Room Air Room Air BMI result Body Mass Index 29.3 Labs 02/03/25 08:07 Labs: Laboratory Results - last 48 hr 02/07/25 09:09 Total Bilirubin 0.5 Direct Bilirubin 0.2 AST 37 ALT 39 Alkaline Phosphatase 67 Total Protein 7.2 Albumin 4.8 Valproic Acid 44.3 L Imaging Radiology Impressions: ITS Impressions Renal Ultrasound 02/03/25 17:44 IMPRESSION: Mild bilateral hydronephrosis. No renal calculi are identified. If there is clinical concern for ureteral calculi, unenhanced CT is recommended. Electronically signed by: Bud hPan MD 02/04/2025 07:18 AM [facility] Medications Medications Current Medications Acetaminophen (Acetaminophen 325 Mg Tablet) 975 mg PO TID PRN PRN Reason: Pain, Mild (Pain Scale 1-3) Last Admin: 02/08/25 08:14 Dose: 975 mg Al Hydroxide/Mg Hydroxide (Magnesium Hydrox/Alum Hydrox 30 Ml Oral.Susp) 30 ml PO Q6H PRN PRN Reason: Heartburn/Nausea Last Admin: 02/08/25 00:34 Dose: 30 ml Diphenhydramine HCl (Diphenhydramine Hcl 25 Mg Capsule) 50 mg PO Q8H PRN PRN Reason: Extrapyramidal Effects Last Admin: 02/08/25 01:44 Dose: 50 mg Divalproex Sodium (Divalproex Sodium Er 250 Mg Tab.Er.24h) 750 mg PO BEDTIME [facility] Last Admin: 02/08/25 20:43 Dose: 750 mg Divalproex Sodium (Divalproex Sodium Er 500 Mg Tab.Er.24h) 500 mg PO DAILY [facility] Last Admin: 02/08/25 13:10 Dose: 500 mg Docusate Sodium (Docusate Sodium 100 Mg Capsule) 100 mg PO BID [facility] Last Admin: 02/08/25 20:43 Dose: 100 mg Gabapentin (Gabapentin 400 Mg Capsule) 400 mg PO BID [facility] Last Admin: 02/08/25 20:43 Dose: 400 mg Haloperidol (Haloperidol 5 Mg Tablet) 5 mg PO TID PRN PRN Reason: agitation Last Admin: 02/08/25 01:43 Dose: 5 mg Hydroxyzine HCl (Hydroxyzine Hcl 25 Mg Tablet) 25 mg PO Q6H PRN PRN Reason: mild anxiety Last Admin: 02/03/25 08:27 Dose: 25 mg Lidocaine (Lidocaine 4 % Patch Adh..Patch) 2 patch TRANSDERMA DAILY [facility]; Protocol Last Admin: 02/08/25 08:39 Dose: 2 patch Lorazepam (Lorazepam 1 Mg Tablet) 1 mg PO TID PRN PRN Reason: agitation Last Admin: 02/08/25 12:52 Dose: 1 mg Magnesium Hydroxide (Milk Of Magnesia 30 Ml Oral.Susp) 30 ml PO DAILY PRN PRN Reason: Constipation Melatonin (Melatonin 3 Mg Tablet) 6 mg PO BEDTIME [facility] Last Admin: 02/08/25 20:43 Dose: 6 mg Methocarbamol (Methocarbamol 500 Mg Tablet) 1,000 mg PO QID PRN PRN Reason: muscle spasm Last Admin: 02/08/25 01:44 Dose: 1,000 mg Nicotine (Nicotine 21 Mg Patch.Td24) 21 mg TRANSDERMA DAILY PRN PRN Reason: nicotine craving Nicotine Polacrilex (Nicotine Polacrilex 2 Mg Gum) 2 mg BUCCAL Q2H PRN PRN Reason: Nicotine Cravings Last Admin: 02/08/25 20:43 Dose: 2 mg Tamsulosin HCl (Tamsulosin Hcl 0.4 Mg Capsule) 0.4 mg PO BEDTIME [facility] Last Admin: 02/08/25 20:43 Dose: 0.4 mg Tizanidine HCl (Tizanidine Hcl 4 Mg Tablet) 4 mg PO TID PRN PRN Reason: Lower back pain Last Admin: 02/08/25 18:18 Dose: 4 mg Zolpidem Tartrate (Zolpidem Tartrate 5 Mg Tablet) 5 mg PO BEDTIME MRX1 PRN PRN Reason: Insomnia Last Admin: 02/03/25 23:11 Dose: 5 mg Allergies Allergies Allergy/AdvReac Type Severity Reaction Status Date / Time No Known Allergies Allergy Verified 02/02/25 22:13 Assessment & Plan Assessment & Plan (1) Amy: Status: Acute Code(s): F30.9 - Manic episode, unspecified Assessment and Plan: Bipolar I d/o vs drug induced (tizanidine) Plan Mr. Baron is a 30 yo partnered M with no previous h/o psychiatric tx who presented to the [place] ED due to back pain. He appeared manic. U tox was neg and he was transferred to [facility] M3 for tx of amy after being medically cleared. Pt has a FHx of bipolar d/o. It sounds like this is his first manic episode, which occurred in the setting of sleep deprivation due to pain and reported tizanidine overuse. There are reports of manic episodes triggered by tizanidine. DDx includes bipolar I vs. drug induced amy. Hospital course: Plan: Admit to M3 for safety and stabilization Legal status-3 day notice 02/10 15 min safety checks VS per unit standard Reviewed medical admission note from hospitalist. Input appreciated. She is ordering an ultrasound to r/o obstructing kidney stone. Pt is agreeable w/ starting Depakote for tx of amy. Ordered haldol 5 mg and lorazepam 1 mg tid prn for agitation and prn zolpidem for insomnia (due to potential risk of trazodone exacerbating amy). 02/03/25: Kidney ultra sound: Per provider note: Mild bilateral hydronephrosis. No renal calculi are identified. If there is clinical concern for ureteral calculi, unenhanced CT is recommended. recommended. 02/04/25: Meet with patient in group room, report pain is under control and rated a 4/10. Report he loves to be in pain at 5/10 as it gives me energy . Report sleep has been improved compared to the past. Report he eats too much . Denies SI/SIB/HI/AVH. Patient asks he can leave today do whatever I have to do . Patient shows staff patient shows staff the picture his son. Later on when patient saw this provider in dining area, he asked if he can have 2 more minutes to talk [place]. He says states that he wants to travel there but he can not sitting longer than 3 hours because of the pain. Per record, patient was medication compliant, slept for 7 hours last night, and attended groups. Started 1st dose of Depakote, tolerate with it well. Denies side effects. Pending effect, patient is manic, racing thoughts, hyperactivity, overly bright, but pleasant and cooperative upon approach. Review with patient regarding PRNs available, patient is aware that he has to ask for p.r.n continue with. Current treatment plan continue with current treatment plan. We will be benefit to have Depakote increase the next day or two. We will do collateral with family regarding medication history. 02/05/25: Meet with patient in sensory room. Report improving in sleep and appetite. Pain on lower body 07/19. Denies SI/SIB/HI/AVH. Less hyper, slightly improve in manic behavior. Compliant wiht meds. taking PRN with HS which are helpful. Explain to patient regarding VPA level in a couple days. Patient is receptive. 02/06: ordered VPA level for tomorrow am. Dose can be titrated by covering psychiatric provider over the weekend if under the therapeutic range. 02/07/25: Met with patient after visit with mom. He is focused on discharge. He wants to be discharged today if possible, reporting that he only has 1 child and he missed his son. Reported that he has is a special jean-claude and special case when telling him that he is not being discharged today. Review with patient regarding VPA level which is 44.3 Sub therapeutic. Patient agreed to have Depakote increased up to 1,250 mg daily at bedtime. Explained to patient that we will need to recheck level in couple of days. No other safety concerns, pleasant and cooperative, Per nursing, patient slept for 7 hours, medication compliant, no side effects, was caodaism preoccupied, hyper focused on discharge. He has a 3 day up on 02/10 and believes that he will be discharged on Sunday. Depakote 1,250 daily at HS for mood. Level in couple of days. 02/08/25: Patient about to shower, agreed to meet with this provider prior to getting to the shower. Reports some what by having diarrhea, and stomach pain yesterday/last night. He thinks is from Depakote dose increased yesterday. He agreed to divided the dose into different scheduled time. Advised patient also take medication with food. We will continue to monitor for possible side effects. Patient reported that he was told that he can be discharged on Sunday. Three days up on SundayFebruary 10. Reported that he has a lot of appointments in the future and he needs to go home and take care that. He does believe he is not manic. He attributes his behavior is from the pain. Per nursing, patient slept for 6.5 hours. Went to groups, perseverative on discharge, medication compliant. Less manic. No side effects except stomach pain/diarrhea which can be multiple factors. We will continue with current plan. Change Depakote from 1250mg at Hs to 500mg AM and 750 in the evening. Patient educated on: diagnosis, medication risk/benefits and therapeutic strategies Informed Consent: understands and further education needed Reason for continued inpatient stay Substantial Risk for: med/psych decompensation Time Spent With Patient Time: Total time managing care of this patient today ____ minutes.
[2025-02-09 07:42] VITALS: BP 116/70; PULSE 91; RESP 18; TEMP 36.1; O2SAT 98
[2025-02-09] MEDS: Lidocaine 4 % Patch ADH..PATCH 2 PATCH TRANSDERMA (08:25)
--- NOTE | 2025-02-09 18:19 | P.PNPSI_ITS ---
Subjective Subjective Date of Service: 02/09/25 Reason For Visit: Manic Episode Subjective Notes: 3 Day Interim History: Chart reviewed, case discussed with tx team Pt told multiple staff that he's been d/c'd today, which wasn't the plan. We had discussed potential d/c plan for 02/10 last week if he is stable. He signed a 3 day that will tomorrow (02/10). Pt told staff that he already arranged for a ride to pick him up today and had packed up his belongings before t/w met w/ him. Pt repeated what he had told t/w at our previous 2 meetings last week, regarding stressors leading up to this admission. He reported that he was just anxious b/c of his pain and he's ready to go today. He reported that he already called his ride to pick him up from [facility] and it's a long drive. T/W reminded pt of the potential plan for d/c tomorrow that we discussed last wk and that nobody on his tx team told him he was leaving today. He showed t/w a list of plans that he wrote down yesterday to demonstrate that he is thinking clearly and is stable. T/W looked at the back of the paper, which had a note about hydrogen bombs. Pt stated that a psychotic patient on the unit was talking about it and he wrote down what they talked about. Pt ultimately accepted that he will not be d/c'd today and t/w will d/c him tomorrow since the 3 day note will and he doesn't want to retract it. He asked t/w to write a note stating this, which I did. Pt reports that he's doing well w/ current med regimen. Had GI issues w/ VPA, which resolved when the dose was split Medication Compliance: Yes Side effects from medications: No Attending Groups: Yes Mental Status Exam Mental Status Exam Narrative: Appearance: Casually dressed. Well groomed. Good eye contact. Speech: Generally wnl. Easily redirectable. Significantly improved Motor activity: calm. no tics, tremors or dyskinesias. steady gait Mood: great Affect: generally euthymic. Not labile/expansive. Thought process: Perseverative on discharge. Thought content: denies SI/violent ideation. Some grandiosity Perception: Denies AH/VH and does not appear to respond to internal stimuli Alert/oriented in all spheres Insight: fair Judgment: poor but improved Diagnostics Vital Signs (24Hr): Vital Signs - 24 hr 02/08/25 19:30 02/09/25 07:42 Temperature 97.9 F 96.9 F Pulse Rate 97 91 Respiratory Rate 16 18 Blood Pressure 128/78 116/70 Pulse Oximetry 98 98 Oxygen Delivery Method Room Air BMI result Body Mass Index 29.3 Labs 02/03/25 08:07 Imaging Radiology Impressions: ITS Impressions Renal Ultrasound 02/03/25 17:44 IMPRESSION: Mild bilateral hydronephrosis. No renal calculi are identified. If there is clinical concern for ureteral calculi, unenhanced CT is recommended. Electronically signed by: Bud Phan MD 02/04/2025 07:18 AM [facility] Medications Medications Current Medications Acetaminophen (Acetaminophen 325 Mg Tablet) 975 mg PO TID PRN PRN Reason: Pain, Mild (Pain Scale 1-3) Last Admin: 02/09/25 17:02 Dose: 975 mg Al Hydroxide/Mg Hydroxide (Magnesium Hydrox/Alum Hydrox 30 Ml Oral.Susp) 30 ml PO Q6H PRN PRN Reason: Heartburn/Nausea Last Admin: 02/08/25 00:34 Dose: 30 ml Diphenhydramine HCl (Diphenhydramine Hcl 25 Mg Capsule) 50 mg PO Q8H PRN PRN Reason: Extrapyramidal Effects Last Admin: 02/08/25 01:44 Dose: 50 mg Divalproex Sodium (Divalproex Sodium Er 250 Mg Tab.Er.24h) 750 mg PO BEDTIME [facility] Last Admin: 02/08/25 20:43 Dose: 750 mg Divalproex Sodium (Divalproex Sodium Er 500 Mg Tab.Er.24h) 500 mg PO DAILY [facility] Last Admin: 02/09/25 08:25 Dose: 500 mg Docusate Sodium (Docusate Sodium 100 Mg Capsule) 100 mg PO BID [facility] Last Admin: 02/09/25 08:25 Dose: 100 mg Gabapentin (Gabapentin 400 Mg Capsule) 400 mg PO BID [facility] Last Admin: 02/09/25 08:25 Dose: 400 mg Haloperidol (Haloperidol 5 Mg Tablet) 5 mg PO TID PRN PRN Reason: agitation Last Admin: 02/08/25 01:43 Dose: 5 mg Hydroxyzine HCl (Hydroxyzine Hcl 25 Mg Tablet) 25 mg PO Q6H PRN PRN Reason: mild anxiety Last Admin: 02/03/25 08:27 Dose: 25 mg Lidocaine (Lidocaine 4 % Patch Adh..Patch) 2 patch TRANSDERMA DAILY [facility]; Protocol Last Admin: 02/09/25 08:25 Dose: 2 patch Lorazepam (Lorazepam 1 Mg Tablet) 1 mg PO TID PRN PRN Reason: agitation Last Admin: 02/08/25 12:52 Dose: 1 mg Magnesium Hydroxide (Milk Of Magnesia 30 Ml Oral.Susp) 30 ml PO DAILY PRN PRN Reason: Constipation Melatonin (Melatonin 3 Mg Tablet) 6 mg PO BEDTIME [facility] Last Admin: 02/08/25 20:43 Dose: 6 mg Methocarbamol (Methocarbamol 500 Mg Tablet) 1,000 mg PO QID PRN PRN Reason: muscle spasm Last Admin: 02/09/25 17:02 Dose: 1,000 mg Nicotine (Nicotine 21 Mg Patch.Td24) 21 mg TRANSDERMA DAILY PRN PRN Reason: nicotine craving Nicotine Polacrilex (Nicotine Polacrilex 2 Mg Gum) 2 mg BUCCAL Q2H PRN PRN Reason: Nicotine Cravings Last Admin: 02/09/25 16:22 Dose: 2 mg Tamsulosin HCl (Tamsulosin Hcl 0.4 Mg Capsule) 0.4 mg PO BEDTIME [facility] Last Admin: 02/08/25 20:43 Dose: 0.4 mg Tizanidine HCl (Tizanidine Hcl 4 Mg Tablet) 4 mg PO TID PRN PRN Reason: Lower back pain Last Admin: 02/09/25 11:51 Dose: 4 mg Zolpidem Tartrate (Zolpidem Tartrate 5 Mg Tablet) 5 mg PO BEDTIME MRX1 PRN PRN Reason: Insomnia Last Admin: 02/03/25 23:11 Dose: 5 mg Allergies Allergies Allergy/AdvReac Type Severity Reaction Status Date / Time No Known Allergies Allergy Verified 02/02/25 22:13 Assessment & Plan Assessment & Plan (1) Amy: Status: Acute Code(s): F30.9 - Manic episode, unspecified Assessment and Plan: Bipolar I d/o vs drug induced (tizanidine) Plan Mr. Baron is a 30 yo partnered M with no previous h/o psychiatric tx who presented to the [place] ED due to back pain. He appeared manic. U tox was neg and he was transferred to [facility] M[facility] for tx of amy after being medically cleared. Pt has a FHx of bipolar d/o. It sounds like this is his first manic episode, which occurred in the setting of sleep deprivation due to pain and reported tizanidine overuse. There are reports of manic episodes triggered by tizanidine. DDx includes bipolar I vs. drug induced amy. Hospital course: Plan: Admit to M3 for safety and stabilization Legal status-3 day notice 02/10 15 min safety checks VS per unit standard Reviewed medical admission note from hospitalist. Input appreciated. She is ordering an ultrasound to r/o obstructing kidney stone. Pt is agreeable w/ starting Depakote for tx of amy. Ordered haldol 5 mg and lorazepam 1 mg tid prn for agitation and prn zolpidem for insomnia (due to potential risk of trazodone exacerbating amy). 02/03/25: Kidney ultra sound: Per provider note: Mild bilateral hydronephrosis. No renal calculi are identified. If there is clinical concern for ureteral calculi, unenhanced CT is recommended. recommended. 02/04/25: Meet with patient in group room, report pain is under control and rated a 4/10. Report he loves to be in pain at 5/10 as it gives me energy . Report sleep has been improved compared to the past. Report he eats too much . Denies SI/SIB/HI/AVH. Patient asks he can leave today do whatever I have to do . Patient shows staff patient shows staff the picture his son. Later on when patient saw this provider in dining area, he asked if he can have 2 more minutes to talk about [place]. He says states that he wants to travel there but he can not sitting longer than 3 hours because of the pain. Per record, patient was medication compliant, slept for 7 hours last night, and attended groups. Started 1st dose of Depakote, tolerate with it well. Denies side effects. Pending effect, patient is manic, racing thoughts, hyperactivity, overly bright, but pleasant and cooperative upon approach. Review with patient regarding PRNs available, patient is aware that he has to ask for p.r.n continue with. Current treatment plan continue with current treatment plan. We will be benefit to have Depakote increase the next day or two. We will do collateral with family regarding medication history. 02/05/25: Meet with patient in sensory room. Report improving in sleep and appetite. Pain on lower body 07/19. Denies SI/SIB/HI/AVH. Less hyper, slightly improve in manic behavior. Compliant wiht meds. taking PRN with HS which are helpful. Explain to patient regarding VPA level in a couple days. Patient is receptive. 02/06: ordered VPA level for tomorrow am. Dose can be titrated by covering psychiatric provider over the weekend if under the therapeutic range. 02/07/25: Met with patient after visit with mom. He is focused on discharge. He wants to be discharged today if possible, reporting that he only has 1 child and he missed his son. Reported that he has is a special jean-claude and special case when telling him that he is not being discharged today. Review with patient regarding VPA level which is 44.3 Sub therapeutic. Patient agreed to have Depakote increased up to 1,250 mg daily at bedtime. Explained to patient that we will need to recheck level in couple of days. No other safety concerns, pleasant and cooperative, Per nursing, patient slept for 7 hours, medication compliant, no side effects, was cheondoism preoccupied, hyper focused on discharge. He has a 3 day up on 02/10 and believes that he will be discharged on Sunday. Depakote 1,250 daily at HS for mood. Level in couple of days. 02/08/25: Patient about to shower, agreed to meet with this provider prior to getting to the shower. Reports some what by having diarrhea, and stomach pain yesterday/last night. He thinks is from Depakote dose increased yesterday. He agreed to divided the dose into different scheduled time. Advised patient also take medication with food. We will continue to monitor for possible side effects. Patient reported that he was told that he can be discharged on Sunday. Three days up on SundayFebruary 10. Reported that he has a lot of appointments in the future and he needs to go home and take care that. He does believe he is not manic. He attributes his behavior is from the pain. Per nursing, patient slept for 6.5 hours. Went to groups, perseverative on discharge, medication compliant. Less manic. No side effects except stomach pain/diarrhea which can be multiple factors. We will continue with current plan. Change Depakote from 1250mg at Hs to 500mg AM and 750 in the evening. 02/09: Sx of amy have significantly improved but pt was convinced that he is being discharged today and called a ride, despite the fact that we had discussed a potential d/c of 02/10 last wk, which is when his 3-day note expires. Nobody on his tx team told him that he was being discharged today but he reportedly already arranged for someone to pick him up from [facility] today. He is not committable and will be d/c'd tomorrow when 3-day note expires. Will check VPA level tomorrow am Patient educated on: diagnosis and medication risk/benefits Informed Consent: understands Reason for continued inpatient stay Substantial Risk for: med/psych decompensation Time Spent With Patient Time: Total time managing care of this patient today 30____ minutes.
[2025-02-09 20:15] VITALS: BP 134/86; PULSE 75; RESP 18; TEMP 35.8; O2SAT 99
[2025-02-09] MEDS: Divalproex Sodium ER 250 MG TAB.ER.24H 750 MG PO (21:17)
[2025-02-10 07:34] VITALS: BP 120/60; PULSE 84; RESP 16; TEMP 35.8; O2SAT 97
[2025-02-10] MEDS: Lidocaine 4 % Patch ADH..PATCH 2 PATCH TRANSDERMA (08:42)
--- NOTE | 2025-02-10 10:05 | P.DS_ITS ---
DS: Providers Provider Date of Service: 02/10/25 Date of admission: 02/02/25 21:35 Date of discharge: 02/10/25 Primary care physician: Unknown Physician Attending physician on admission: Emerita Rose Consults: 02/02/25 22:33 Consult to Hospitalist Routine Comment: Consulting Provider: [facility] [place] Hospitalists Reason For Exam: admission physical Attending physician on discharge: Emerita Rose DS: Diagnosis Discharge Diagnosis (1) Amy: Status: Acute DS: Medications Discharge Medications Home Medications: Previous Rx's ?Medication ?Instructions ?Recorded aluminum-magnesium hydroxide 200 30 ml PO Q6H PRN Hear tburn/Nausea 02/09/25 mg-200 mg/5 mL oral suspension #0 mL (MAG-AL) diphenhydramine HCl 25 mg capsule 50 mg (2 x 25 mg) PO Q8H PRN 02/09/25 Extrapyramidal Effects #0 caps divalproex 250 mg tablet,delayed See Rx Instructions . Route 02/09/25 release .COMPLEX 30 days #30 tabs divalproex 500 mg tablet,delayed 500 mg PO BID 30 days #60 tabs 02/09/25 release docusate sodium 100 mg capsule 100 mg PO BID #0 caps 1 04/12/24 gabapentin 400 mg capsule 400 mg PO BID 30 days #60 ca ps 02/09/25 haloperidol 5 mg tablet 5 mg PO DAILY PRN agitation 30 02/09/25 days #30 tabs lidocaine 4 % topical patch 2 patch transdermal DAILY #0 ea 02/09/25 (Lidocaine Pain Relief) melatonin 3 mg tablet 6 mg (2 x 3 mg) PO BEDTIME # 0 tabs 02/09/25 methocarbamol 500 mg tablet 1,000 mg (2 x 500 mg) PO Q ID PRN 02/09/25 muscle spasm 14 days #70 tabs nicotine (polacrilex) 2 mg gum 2 mg buccal Q2H PRN Jasbir otine 02/09/25 Cravings 30 days #100 ea tamsulosin 0.4 mg capsule 0.4 mg PO BEDTIME 30 days #3 0 caps 02/09/25 tizanidine 4 mg tablet 4 mg PO TID PRN Lower back p ain 14 02/09/25 days #42 tabs Mental Status Exam Mental Status Exam Narrative: Appearance: Casually dressed. Well groomed. Good eye contact. Speech: Generally wnl. Easily redirectable. Significantly improved Motor activity: calm. no tics, tremors or dyskinesias. steady gait Mood: great Affect: Euthymic. Not expansive. Thought process: Goal directed Thought content: denies SI/violent ideation. less grandiose. Future oriented Perception: Denies AH/VH and does not appear to respond to internal stimuli Alert/oriented in all spheres Insight: fair Judgment: fair Data Data Completed and Pending Completed studies during hospitalization [Text1]: 02/03/25 02/07/25 02/10/25 18:32 09:09 07:46 Total Bilirubin 0.5 Direct Bilirubin 0.2 AST 37 ALT 39 Alkaline Phosphatase 67 Total Protein 7.2 Albumin 4.8 Urine Color Yellow Urine Appearance Clear Urine pH 7.0 Ur Specific [place] <= 1.005 Urine Protein Negative Urine Glucose (UA) Negative Urine Ketones Negative Urine Blood Negative Urine Nitrite Negative Ur Leukocyte Esterase Negative Valproic Acid 44.3 L 67.6 Imaging Diagnostic Imaging Impressions Renal Ultrasound 02/03/25 17:44 IMPRESSION: Mild bilateral hydronephrosis. No renal calculi are identified. If there is clinical concern for ureteral calculi, unenhanced CT is recommended. Electronically signed by: Bud Phan MD 02/04/2025 07:18 AM [facility] DS: Summary Hospital Course Hospital Course: Mr. Draper is a 30 yo partnered M with no previous h/o psychiatric tx who presented to the [facility] ED due to back pain. He appeared manic. U tox was neg and he was transferred to [facility] [place] [facility] for tx of amy after being medically cleared. Per ED note- pt presented to the ED 3x in the past month due to back pain. Dx'd with kidney stone, medically admitted from 01/30-01/31 and returned on 02/01 and was hyperverbal, unable to remain seated, reported elevated mood, hearing voices of 'myself' and decreased need for sleep. His fiance reported having concerns about pt's mental health in the past but he's never presented like this before. She reported that pt has been pacing all night and talking to himself. Lumbar spine MRI showed broad based disc protrusion of L5-S1, without spinal canal or neural foraminal stenosis. CT showed1-2 mm obstructing kidney stone. An antibiotic was ordered but unclear why. UA was neg. 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 He's been out on worker's comp and is undergoing PT. He took a shower and his right side was 'on fire' and he experienced R foot weakness, so he went to the ED. Got an rx for methocarbamol, which helped but it wasn't covered by his insurance. He had been taking tizanidine already and kept increasing the dose since he developed a tolerance and it made him hallucinate. He reports that he got stressed and called [phone] from his car to talk about his problems. He endorses racing thoughts, rapid speech, poor sleep in setting of pain but states that he wants to sleep. He notes that there is a family h/o bipolar d/o and he's felt like he might have bipolar d/o as well. Denies that his mood epi sodes have ever gotten him into trouble. Describes his mood as good and happy . Pt received prn olanzapine this am, which seems to have had minimal effect. He requested a medication for amy and received haldol 5 mg, 1 mg lorazepam and 25 mg benadryl. He refers to the haldol as a Hell fire pill that helped him sleep and would like to continue taking it. He reports all I want to do is sleep . Denies AHVH Denies SI/violent ideation Past Psychiatric History: Denies any h/o psychiatric tx Denies h/o self harm, SI or violent ideation Initial A/P: Pt has a FHx of bipolar d/o. It sounds like this is his first manic episode, which occurred in the setting of sleep deprivation due to pain and reported tizanidine overuse. There are reports of manic episodes triggered by tizanidine. DDx includes bipolar I vs. drug induced amy. Plan: Admit to M3 for safety and stabilization Legal status- Initially signed CV. Later signed 3-day note that would on 02/10/25 15 min safety checks VS per unit standard Reviewed medical admission note from hospitalist. Input appreciated. She is ordering an ultrasound to r/o obstructing kidney stone. Pt is agreeable w/ starting Depakote for tx of amy. Ordered haldol 5 mg and lorazepam 1 mg tid prn for agitation and prn zolpidem for insomnia (due to potential risk of trazodone exacerbating amy). 02/03/25: Medication compliant, slept for 7 hours last night, and attended groups. Started 1st dose of Depakote, tolerate with it well. Denies side effects. Pending effect, patient is manic, racing thoughts, hyperactivity, overly bright, but pleasant and cooperative upon approach. Continue current tx plan 02/04/25: Pt reports his pain is under control and rated a 4/10. Reports sleep has been improved compared to the past. Report he eats too much . Denies SI/SIB/HI/AVH. Patient asks he can leave today do whatever I have to do . Patient shows staff patient shows staff the picture his son. Later on when andres lopez saw this provider in dining area, he asked if he can have 2 more minutes to talk about [place] to [place]. He says states that he wants to travel there but he can not sitting longer than 3 hours because of the pain. 02/05/25: Reports improving in sleep and appetite. Pain on lower body 5/10. Denies SI/SIB/HI/AVH. Less hyper, slightly improve in manic behavior. Compliant with meds. taking PRN with HS which are helpful. Explain to patient regarding VPA level in a couple days. Patient is receptive. 02/06: Amy sx improving. ordered VPA level for tomorrow am. Discussed potential d/c date of 02/10 if pt is stable. Pt signed 3-day, which will 02/10 02/07: Pt is focused on discharge. He wants to be discharged today if possible, reporting that he only has 1 child and he missed his son. Reported that he has is a special jean-claude and special case when telling him that he is not being discharged today. Review with patient regarding VPA level which is 44.3 Sub therapeutic. Patient agreed to have Depakote increased up to 1,250 mg daily at bedtime. Explained to patient that we will need to recheck level in couple of days. No other safety concerns, pleasant and cooperative, Per nursing, patient slept for 7 hours, medication compliant, no side effects, was mosque preoccupied, hyper focused on discharge. He has a 3 day up on 02/10 and believes that he will be discharged on Sunday. Depakote 1,250 daily at HS for mood. Level in couple of days. 02/08/25: Reports some what by having diarrhea, and stomach pain yesterday/last night. He thinks is from Depakote dose increased yesterday. He agreed to divided the dose into different scheduled time. Advised patient also take medication with food. We will continue to monitor for possible side effects. Patient reported that he was told that he can be discharged on Sunday. Three days up on SundayFebruary 10. Reported that he has a lot of appointments in the future and he needs to go home and take care that. He does believe he is not manic. He attributes his behavior is from the pain. Per nursing, patient slept for 6.5 hours. Went to groups, perseverative on discharge, medication compliant. Less manic. No side effects except stomach pain/diarrhea which can be multiple factors. We will continue with current plan. Change Depakote from 1250mg at Hs to 500mg AM and 750 in the evening. 02/09: Sx of amy have significantly improved but pt was convinced that he is being discharged today and called a ride, despite the fact that we had discussed a potential d/c of 02/10 last wk, which is when his 3-day note expires. Nobody on his tx team told him that he was being discharged today but he reportedly already arranged for someone to pick him up from [facility] today. He is not committable but demonstrates impaired impulse control/judgment in regards to reportedly making arrangements for someone to pick him up from [place] today. Pt will d/c'd tomorrow when 3-day note expires. Will check VPA level tomorrow am. 02/10: VPA level 67.6. Pt is looking forward to returning home today and reports feeling safe. He has not engaged in any behavioral issues that present a risk to himself or others throughout his admission. His sleep and other sx of amy have improved, as well as his pain. Status at Discharge Functional status at discharge: independent ambulation Overall status at discharge: patient is progressing back to baseline Time Spent with Patient Time attestation: Total time managing care of this patient today ____ minutes. Time spent: Greater than 30 minutes Specific discharge activities: Pt interview, d/c planning Discharge Plan Discharge Anticipated Discharge Date/Time: 02/10/25 10:00 Patient Disposition: Home, Self-Care Discharge Diagnosis: Bipolar disorder, unspecified Referrals: Majo Muñiz MD [Other] - 1 Week Referral Note: This provider has informed us that you have not been seen by them in over 3 years and are no longer your provider. Please contact a new provider to set up a new patient appointment upon discharge. Therapy & Psychiatry [Other] - 1 Week Referral Note: *You can follow up with the clinic above for assistance with securing outpatient mental health providers. Therapy & Psychiatry [Other] - 1 Week Referral Note: *You can follow up at the phone number listed above regarding assistance with securing outpatient mental health treatment. Therapy & Psychiatry [Other] - 1 Week Referral Note: *You can follow up at the clinic above for assistance with securing outpatient mental health treatment. Discharge Medications: New docusate sodium 100 mg Capsule 100 mg PO BID Qty: 0 0RF MAG-AL 200-200 mg/5 mL Suspension 30 ml PO Q6H PRN (Reason: Heartburn/Nausea) Qty: 0 0RF nicotine (polacrilex) 2 mg Gum 2 mg buccal Q2H PRN (Reason: Nicotine Cravings) 28 Days Qty: 100 0RF tizanidine 4 mg Tablet 4 mg PO TID PRN (Reason: Lower back pain) Qty: 0 0RF acetaminophen 325 mg Tablet 975 mg PO TID PRN (Reason: Pain, Mild (Pain Scale 1-3)) Qty: 0 0RF divalproex 500 mg tablet,delayed release (DR/EC) 500 mg PO BID 30 Days Qty: 60 0RF melatonin 3 mg Tablet 6 mg PO BEDTIME Qty: 0 0RF lidocaine [Lidocaine Pain Relief] 4 % Adhesive Patch,Medicated 2 patch transdermal DAILY 15 Days Qty: 30 0RF Protocol: Apply to: Apply to: Lower back methocarbamol 500 mg tablet 1,000 mg PO QID PRN (Reason: moderate to severe pain) 14 Days Qty: 112 0RF gabapentin 400 mg capsule 400 mg PO BID 30 Days Qty: 60 0RF tizanidine 4 mg capsule 4 mg PO Q8H PRN (Reason: muscle spasticity) 14 Days Qty: 42 0RF tamsulosin [Flomax] 0.4 mg capsule 0.4 mg PO BEDTIME 30 Days Qty: 30 0RF haloperidol 5 mg tablet 5 mg PO BID PRN (Reason: agitation) 30 Days Qty: 60 0RF divalproex [Depakote] 250 mg tablet,delayed release (DR/EC) 250 mg PO BEDTIME 30 Days Qty: 30 0RF Discontinued methocarbamol 500 mg Tablet 1,000 mg PO QID cefpodoxime 200 mg Tablet 200 mg PO BID Rx Instructions: must administer with a meal/food. Take for 6 days 01/31-02/06 gabapentin 300 mg Tablet 300 mg PO BID acetaminophen 500 mg Tablet 1,000 mg PO TID tamsulosin 0.4 mg Capsule 0.4 mg PO BEDTIME Discharge Orders: Discharge Order (Routine); Ordered 02/10/25 Ordered By: Emerita Rose Activity on Discharge: As tolerated Stand Alone Forms: Patient Portal Discharge page, Community Support Print Language: [place] Care Plan Goals: Maintain safe behaviors Practice coping skills Take medications as prescribed Continue to pursue sobriety Maintain regular follow-ups with your outpatient providers Health Concerns: Lumbar spine spondylosis Continue gabapentin 300 b.i.d. Robaxin p.r.n. Tizanidine p.r.n. Lidoderm patch Nephrolithiasis Continue Flomax EXAMINATION: US KIDNEY BILATERAL 02/03/25 HISTORY: History of nephrolithiasis TECHNIQUE: Real-time grayscale ultrasound imaging of the kidneys was performed and images were reviewed. COMPARISON: There are no prior studies available for comparison. FINDINGS: Right kidney: The right kidney measures 11.8 x 5.2 x 5.5 cm. Renal parenchymal echotexture and thickness are normal. There are no masses. There is mild hydronephrosis. There are no renal calculi. Left Kidney: The left kidney measures 12.2 x 5.5 x 4.7 cm. Renal parenchymal echotexture and thickness are normal. There are no masses. There is mild hydronephrosis. There are no renal calculi. US/US renal BI IMPRESSION: Mild bilateral hydronephrosis. No renal calculi are identified. If there is clinical concern for ureteral calculi, unenhanced CT is recommended. Plan of Treatment: Follow up with your psychiatric provider, PCP and other outpatient providers Take your medication as prescribed Assessment: Risk assessment at the time of discharge: Patient was interviewed on the day of discharge and found to be fully oriented, without any SI or violent ideation. Pt has improved insight and judgment and plans to continue treatment Pt is not at imminent risk of harm to self or others and has a safety plan that includes presenting to the closest ER or calling 911 if feeling unsafe. Pt has been observed closely by unit staff and has not engaged in any behaviors that suggest dangerous to self or others and has demonstrated appropriate bheaviors and impulse control. Discharge Date/Time: 02/10/25 10:15
== END 2025-02-10 10:15 | disposition home or self-care (01) | DRG 885 ==
PROVIDERS: Nurse Practitioner Family; Nurse Practitioner Psychiatric/Mental Health; Admitting Provider Psychiatry & Neurology Psychiatry; Visit Provider Psychiatry & Neurology Psychiatry
DX: F31.9 Bipolar disorder, unspecified (principal); M47.816 Spondylosis without myelopathy or radiculopathy, lumbar region; N20.0 Calculus of kidney; Z79.899 Other long term (current) drug therapy
CPT/HCPCS: 36415; 76775; 80053; 80061; 80076; 80164; 81003; 82607; 83036; 83735; 84439; 84443

== ENCOUNTER 2025-02-02 21:35 | Outpatient (BNV) | payer SELFPAY | END 2025-02-03 17:44 | PROVIDERS: Admitting Provider Psychiatry & Neurology Psychiatry; Visit Provider Radiology Diagnostic Radiology | DX: N13.30 Unspecified hydronephrosis (principal); Z87.442 Personal history of urinary calculi | CPT/HCPCS: 76775 ==

== ENCOUNTER → 2025-02-02 21:35 | Outpatient (BNV) | payer SELFPAY | PROVIDERS: Admitting Provider Psychiatry & Neurology Psychiatry; Visit Provider Nurse Practitioner Family | DX: M47.9 Spondylosis, unspecified (principal) | CPT/HCPCS: 99221 ==

== ENCOUNTER → 2025-02-02 21:35 | Outpatient (BNV) | payer SELFPAY | PROVIDERS: Admitting Provider Psychiatry & Neurology Psychiatry; Visit Provider Psychiatry & Neurology Psychiatry | DX: F30.9 Manic episode, unspecified (principal) | CPT/HCPCS: 99231; 99232 ==